=== PATIENT | male | born 1970 | race Caucasian/White ===

== ENCOUNTER 2018-08-30 12:19 | Emergency (ER) | payer MEDICAID ==
[~2018-08-30] VITALS: Ht 193 cm; Wt 116.4 kg
--- NOTE | 2018-08-30 12:39 | NUR ---
RECENT UNPROTECTED SEX
[2018-08-30 13:00] LABS: CLARITY,URINE CLEAR (Clear); COLOR,URINE YELLOW (Yellow); GLUCOSE, URINE NEGATIVE (Neg); KETONES,URINE NEGATIVE (Neg); LEUKOCYTE ESTERASE ,URINE NEGATIVE (Neg); NITRITES, URINE NEGATIVE (Neg); OCCULT BLOOD,URINE NEGATIVE (Neg); PROTEIN,URINE NEGATIVE (Neg); UROBILINOGEN,URINE 0.2 E.U/dL (0.2-1.0)
[2018-08-30 13:10] LABS: BASOPHILS # (AUTO) 0.1 X10'3 (0-0.2); BASOPHILS % (AUTO) 0.6 % (0-1); EOSINOPHILS # (AUTO) 0.3 X10'3 (0-0.9); EOSINOPHILS % (AUTO) 3.5 % (0-6); HEMATOCRIT 43.6 % (42.0-52.0); HEMOGLOBIN 15.2 g/dl (14.0-17.9); LYMPHOCYTES # (AUTO) 1.7 X10'3 (1.1-4.8); LYMPHOCYTES % (AUTO) 18.1 % (21-51); MEAN CORPUSCULAR HEMOGLOBIN 31.7 PG (27.0-31.0); MEAN CORPUSCULAR HGB CONC 34.8 g/dL (33.0-36.5); MEAN CORPUSCULAR VOLUME 90.9 FL (78-98); MEAN PLATELET VOLUME 6.7 FL (7.4-10.4); MONOCYTES # (AUTO) 1.1 X10'3 (0-0.9); MONOCYTES % (AUTO) 11.6 % (2-12); NEUTROPHILS # (AUTO) 6.1 X10'3 (1.8-7.7); NEUTROPHILS % (AUTO) 66.2 % (42-75); PLATELET COUNT 289 X10'3 (140-440); RED BLOOD COUNT 4.79 X10'6 (4.70-6.10); RED CELL DISTRIBUTION WIDTH 14.6 % (11.5-14.5); WHITE BLOOD COUNT 9.2 X10'3 (4.5-11.0)
[2018-08-30 13:11] LABS: UA COLLECTION TYPE CLN CATCH MIDSTREAM
[2018-08-30 13:20] LABS: ALANINE AMINOTRANSFERASE 21 U/L (12-78); ALBUMIN 3.5 G/DL (3.4-5.0); ALBUMIN/GLOBULIN RATIO 0.9 (1.1-1.5); ALKALINE PHOSPHATASE 120 IU/L (46-116); ANION GAP 13 (8-16); ASPARTATE AMINO TRANSFERASE 14 U/L (10-37); BILIRUBIN,TOTAL 0.4 MG/DL (0.1-1.0); BLOOD UREA NITROGEN 8 MG/DL (7-18); BUN/CREATININE RATIO 7.6 (5.4-32.0); CALCIUM 9.1 MG/DL (8.5-10.1); CHLORIDE 102 MMOL/L (99-107); CREATININE 1.05 MG/DL (0.60-1.10); GLUCOSE 98 MG/DL (70-104); POTASSIUM 3.2 MMOL/L (3.5-5.1); SODIUM 140 MMOL/L (135-145); TOTAL CARBON DIOXIDE 25.5 MMOL/L (24-32); TOTAL PROTEIN 7.4 G/DL (6.4-8.2); eGFR 76 ML/MIN
[2018-08-30 13:25] LABS: PROTHROMBIN TIME 10.4 SECONDS (9.0-12.0)
[2018-08-30 13:28] LABS: MAGNESIUM 2.1 MG/DL (1.5-2.4); TROPONIN I < 0.04 NG/ML (0.0-0.05)
--- NOTE | 2018-08-30 14:25 | NUR ---
pt admits to using cocaine and alcohol recently
[2018-08-30 14:49] VITALS: BP 110/56
== END 2018-08-30 14:51 | disposition home or self-care (01) ==
LOC: ER 12:19
DX: R07.89 Other chest pain (principal); Z88.0 Allergy status to penicillin
CPT/HCPCS: 36415; 71045; 80053; 81003; 83605; 83735; 83880; 84145; 84484; 85025; 85610; 93005; 99284

== ENCOUNTER 2018-12-20 19:18 | Emergency (ER) | payer MEDICAID ==
[~2018-12-20] VITALS: Ht 190.5 cm; Wt 105.0 kg
[~2018-12-20 19:18] MED LIST: CLIN150C8 PO
[2018-12-20] MEDS ORDERED: HYDROcodone/acetaminophen 10/325mg tab PO ONE (20:10)
[2018-12-20] MEDS ORDERED: ketorolac trometh inj. 60 MG/2 ML VIAL IM ONE (20:10)
[2018-12-20] MEDS ORDERED: HYDR-4353 PO (20:46)
[2018-12-21] MEDS ORDERED: NO HOME MEDS (16:12)
== END 2018-12-20 20:52 | disposition home or self-care (01) ==
LOC: ER 19:19
DX: S93.401A Sprain of unspecified ligament of right ankle, initial encounter (principal); S93.601A Unspecified sprain of right foot, initial encounter; Z88.0 Allergy status to penicillin; Z88.8 Allergy status to other drugs, medicaments and biological substances; Z79.2 Long term (current) use of antibiotics; Z79.899 Other long term (current) drug therapy; X50.1XXA Overexertion from prolonged static or awkward postures, initial encounter; Y93.02 Activity, running; Y92.89 Other specified places as the place of occurrence of the external cause; Y99.8 Other external cause status
CPT/HCPCS: 73610; 73630; 96372; 99283; J1885

== ENCOUNTER 2018-12-21 14:13 | Inpatient (IN) | payer MEDICAID ==
[~2018-12-21] VITALS: Ht 182.9 cm; Wt 113.2 kg
[~2018-12-21 14:13] MED LIST changes: +HYDR-4353 PO
[2018-12-21] MEDS ORDERED: normal saline 1000ML IV soln IVB ONE ×2 (15:10→16:35)
[2018-12-21] MEDS ORDERED: LORazepam 2 mg/ml vial IV ONE ×2 (15:10→19:40)
[2018-12-21 15:38] LABS: BASOPHILS # (AUTO) 0.1 X10'3 (0-0.2); BASOPHILS % (AUTO) 0.5 % (0-1); EOSINOPHILS % (AUTO) 0 % (0-6); HEMATOCRIT 47.6 % (42.0-52.0); HEMOGLOBIN 16.2 g/dl (14.0-17.9); LYMPHOCYTES # (AUTO) 1.4 X10'3 (1.1-4.8); LYMPHOCYTES % (AUTO) 6.3 % (21-51); MEAN CORPUSCULAR HEMOGLOBIN 31.3 PG (27.0-31.0); MEAN CORPUSCULAR HGB CONC 34.1 g/dL (33.0-36.5); MEAN CORPUSCULAR VOLUME 91.9 FL (78-98); MEAN PLATELET VOLUME 7.9 FL (7.4-10.4); MONOCYTES # (AUTO) 1.6 X10'3 (0-0.9); MONOCYTES % (AUTO) 7.2 % (2-12); NEUTROPHILS # (AUTO) 19.3 X10'3 (1.8-7.7); PLATELET COUNT 307 X10'3 (140-440); RED BLOOD COUNT 5.17 X10'6 (4.70-6.10); RED CELL DISTRIBUTION WIDTH 14.2 % (11.5-14.5); WHITE BLOOD COUNT 22.5 X10'3 (4.5-11.0)
[2018-12-21 15:45] LABS: ALBUMIN 3.7 G/DL (3.4-5.0); ALKALINE PHOSPHATASE 78 IU/L (46-116); ANION GAP 17 (8-16); BILIRUBIN,TOTAL 1.1 MG/DL (0.1-1.0); BLOOD UREA NITROGEN 36 MG/DL (7-18); BUN/CREATININE RATIO 5.5 (5.4-32.0); CALCIUM 8.3 MG/DL (8.5-10.1); CHLORIDE 94 MMOL/L (99-107); CREATININE 6.58 MG/DL (0.60-1.10); GLUCOSE 115 MG/DL (70-104); POTASSIUM 3.5 MMOL/L (3.5-5.1); SODIUM 133 MMOL/L (135-145); TOTAL CARBON DIOXIDE 22.5 MMOL/L (24-32); TOTAL PROTEIN 7.3 G/DL (6.4-8.2); eGFR 9 ML/MIN
[2018-12-21 15:48] LABS: ETHANOL < 0.010 GM/DL (0.0-0.010)
[2018-12-21] MEDS ORDERED: NO HOME MEDS (16:12)
[2018-12-21 16:19] LABS: ACETAMINOPHEN < 2.0 UG/ML (10-30); ASPARTATE AMINO TRANSFERASE 2767 U/L (10-37)
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
[2018-12-21 16:20] LABS: ALANINE AMINOTRANSFERASE 1258 U/L (12-78)
--- NOTE | 2018-12-21 16:34 | NUR ---
STRAIGHT CATH URINE OBTAINED, 2 RN AND 3 SECURITY AT BEDSIDE TO ASSIST, URINE IS DARK BROWN/BLACK, DR LOMBARDI NOTIFIED, ORDERS TO FOLLOW.
[2018-12-21] MEDS ORDERED: haloperidol lactate 5mg/ml inj IM ONE (16:35)
[2018-12-21 16:41] LABS: CREATINE KINASE > 100000 U/L (39-308)
--- NOTE | 2018-12-21 17:04 | NUR ---
MEDICATED PT WITH 3RD LITER BOLUS AND HALDOL PER ORDERS, PT PLACED ON MONITOR WILL UPDATED VS, ALSO PRINTED RHYTHM STRIP AND PLACED ON CHART, DR LOMBARDI NOTIFIED OF PT SWELLING TO RIGHT LEG, PT TO CT WITH ALESSIA RN AND 2 RESIDENTIAL APPLIANCE REPAIR TECHNICIAN PER ORDERS.
[2018-12-21 17:09] LABS: URINE AMPHETAMINE SCREEN POSITIVE (Neg); URINE BARBITUATE SCREEN NEGATIVE (Neg); URINE BENZODIAZEPINES SCREEN NEGATIVE (Neg); URINE CANNABINOID SCREEN POSITIVE (Neg); URINE COCAINE SCREEN POSITIVE (Neg); URINE METHADONE SCREEN NEGATIVE (Neg); URINE OPIATE SCREEN POSITIVE (Neg); URINE PHENCYCLIDINE SCREEN NEGATIVE (Neg)
[2018-12-21 17:13] LABS: CLARITY,URINE TURBID (Clear); COLOR,URINE BROWN (Yellow)
[2018-12-21 17:14] LABS: GLUCOSE, URINE 100 mg/dl (Neg); KETONES,URINE TRACE mg/dl (Neg); LEUKOCYTE ESTERASE ,URINE TRACE (Neg); OCCULT BLOOD,URINE LARGE (Neg)
[2018-12-21 17:15] LABS: UA COLLECTION TYPE STRAIGHT CATH
[2018-12-21 17:17] LABS: NITRITES, URINE UNABLE TO PERFORM (Neg)
[2018-12-21 17:35] LABS: BACTERIA,URINE NONE SEEN /HPF (Neg); MUCUS STRANDS FEW /LPF (Neg); SQUAMOUS EPITHELIAL CELL,UR FEW /LPF (FEW)
[2018-12-21 17:36] LABS: CAL OXALATE CRYSTALS FEW /HPF (NEGATIVE); CELLULAR CAST 0-4 /LPF (NEGATIVE); COARSE GRANULAR CAST 0-3 /LPF (NEGATIVE); HYALINE CASTS 0-3 /LPF (NEGATIVE); RENAL CELLS, URINE FEW /HPF; TRANSITIONAL EPI CELLS,URINE FEW /HPF
[2018-12-21 17:41] LABS: PROTEIN,URINE >=300 mg/dl (Neg)
[2018-12-21 17:42] LABS: WAXY CASTS,URINE 0-3 /LPF (NEGATIVE)
[2018-12-21 18:11] LABS: OXYGEN SATURATION (MIXED VEN) 64.7 % (60-80); PO2 MIXED VENOUS (TEMP COR) 40.4 mmHg (35-46)
[2018-12-21] MEDS: sodium bicarbonate (8.4%) inj. 75 ML in dextrose 5% water 500ml 500 ML IV SCH ×2 (18:19→21:50)
[2018-12-21] MEDS ORDERED: morphine 2 MG/ML inj. syringe IV PRN (18:55)
[2018-12-21] MEDS ORDERED: acetaminophen 325mg tablet PO PRN (18:55)
[2018-12-21] MEDS: sodium bicarbonate (8.4%) inj. 75 MEQ in dextrose 5% water 500ml 500 ML IV SCH ×2 (19:00→23:47)
[2018-12-21 19:49] LABS: PHOSPHORUS 6.7 MG/DL (2.3-4.5)
[2018-12-21] MEDS: docusate sod 100mg capsule PO SCH (20:00)
--- NOTE | 2018-12-21 20:40 | NUR ---
I have received report from Ascencion MAJOR in ED and had the opportunity to ask questions and assume patient care. is set up and ready for PT arrival.
--- NOTE | 2018-12-21 20:55 | NUR ---
PT arrived to unit via ED. PT transferred to bed using slide-board. PT placed in bedside monitor. VSS. PT is on RA, tolerating well O2 sat >96%. PT came up from ED with restraints in place. PT is wearing dark green scrubs. PT RT lower leg is noticeably more reddened swollen, PT does have Bilat palpable dorsalis pedis pulses. Bilat calf measurements taken, LT is 42.0 CM. RT is 46.5 cm. Bed is locked and low. Will continue to monitor.
[2018-12-21 21:00] VITALS: BP 145/76
[2018-12-21] MEDS: sennosides/docusate sodium tablet PO SCH (21:00)
[2018-12-21] MEDS: ceFAZolin 1GM/D5W- ADD-VANTAGE 50 ML IV SCH (21:21)
[2018-12-21 22:00] VITALS: BP 144/72
[2018-12-21] MEDS: heparin, porcine 5000 units/ml vial SQ SCH (22:16)
[2018-12-21] MEDS: morphine 4 MG/ML inj SYRINge IV PRN (22:44)
[2018-12-21 23:00] VITALS: BP 147/69
[2018-12-22] VITALS (24 sets, daily range): BP systolic 113–160; BP diastolic 54–87
--- NOTE | 2018-12-22 | NUR ---
PT sleeping with no s/s of distress noted at this time. VSS. PT has been appropriate and respectful thus far. Bed is locked and low. Call light is within reach. Will continue to monitor.
[2018-12-22] MEDS: HYDROcodone/acetaminophen 10/325mg tab PO PRN ×2 (01:00→05:02)
[2018-12-22] MEDS: sodium bicarbonate (8.4%) inj. 75 MEQ in dextrose 5% water 500ml 500 ML IV SCH ×7 (03:47→21:19)
--- NOTE | 2018-12-22 03:50 | NUR ---
Bladder scanned performed d/t PT not voiding thus far in shift despite IVF running @ 150mL/hr. PT asked multiple times if he needs to void. PT repeatedly stated m Addendum: 12/22/18 at 0453 by Tanja Deshpande RN PT repeatedly stated no. PT states "I've had kidney problems since I was a kind, I don't go much throughout the day". Will continue to monitor. Bladder scan resulted 27ml.
[2018-12-22 04:58] LABS: BASOPHILS % (AUTO) 0.3 % (0-1); EOSINOPHILS # (AUTO) 0.2 X10'3 (0-0.9); EOSINOPHILS % (AUTO) 1.3 % (0-6); HEMATOCRIT 41.2 % (42.0-52.0); HEMOGLOBIN 13.9 g/dl (14.0-17.9); LYMPHOCYTES # (AUTO) 2.1 X10'3 (1.1-4.8); LYMPHOCYTES % (AUTO) 13.2 % (21-51); MEAN CORPUSCULAR HEMOGLOBIN 31.5 PG (27.0-31.0); MEAN CORPUSCULAR HGB CONC 33.8 g/dL (33.0-36.5); MEAN CORPUSCULAR VOLUME 93.2 FL (78-98); MEAN PLATELET VOLUME 8.1 FL (7.4-10.4); MONOCYTES # (AUTO) 0.9 X10'3 (0-0.9); MONOCYTES % (AUTO) 5.8 % (2-12); NEUTROPHILS # (AUTO) 12.3 X10'3 (1.8-7.7); NEUTROPHILS % (AUTO) 79.4 % (42-75); PLATELET COUNT 228 X10'3 (140-440); RED BLOOD COUNT 4.42 X10'6 (4.70-6.10); WHITE BLOOD COUNT 15.5 X10'3 (4.5-11.0)
[2018-12-22 05:21] LABS: ALANINE AMINOTRANSFERASE 825 U/L (12-78); ALBUMIN 2.6 G/DL (3.4-5.0); ALBUMIN/GLOBULIN RATIO 0.9 (1.1-1.5); ALKALINE PHOSPHATASE 61 IU/L (46-116); ANION GAP 15 (8-16); BILIRUBIN,TOTAL 0.7 MG/DL (0.1-1.0); BLOOD UREA NITROGEN 43 MG/DL (7-18); BUN/CREATININE RATIO 5.6 (5.4-32.0); CHLORIDE 97 MMOL/L (99-107); CREATININE 7.67 MG/DL (0.60-1.10); GLUCOSE 89 MG/DL (70-104); MAGNESIUM 1.9 MG/DL (1.5-2.4); PHOSPHORUS 5.7 MG/DL (2.3-4.5); SODIUM 135 MMOL/L (135-145); TOTAL CARBON DIOXIDE 22.7 MMOL/L (24-32); TOTAL PROTEIN 5.6 G/DL (6.4-8.2); eGFR 8 ML/MIN
[2018-12-22 05:30] LABS: ASPARTATE AMINO TRANSFERASE 1382 U/L (10-37); POTASSIUM 2.8 MMOL/L (3.5-5.1)
[2018-12-22] MEDS ORDERED: potassium Cl 20 mEq SR tablet PO ONE (05:40)
--- NOTE | 2018-12-22 05:50 | NUR ---
Recieved critical K of 2.8, SANAZ Farmer notified. Order received got one time does of 20meq PO K. Also received order to increase IVF from 150ml/hr to 200ml/hr. Will continue to monitor.
[2018-12-22 06:12] LABS: CREATINE KINASE 80791 U/L (39-308)
--- NOTE | 2018-12-22 06:25 | NUR ---
Problems reprioritized. Patient report given, questions answered & plan of care reviewed with Ellie MAJOR.
[2018-12-22] MEDS: docusate sod 100mg capsule PO SCH ×2 (08:00→19:55)
[2018-12-22] MEDS: ceFAZolin 1GM/D5W- ADD-VANTAGE 50 ML IV SCH ×2 (08:02→19:55)
[2018-12-22] MEDS: heparin, porcine 5000 units/ml vial SQ SCH ×2 (08:02→19:55)
[2018-12-22 11:58] LABS: PARTIAL THROMBOPLASTIN TIME 31 SECONDS (22-32)
--- NOTE | 2018-12-22 13:49 | NUR ---
Dr. Hill confirmed pt has compartment syndrome with pressure monitor. Decided it was too late for surgery. Dr. Urrutia consulted. Pt fitted for foot drop boot. Tearful about situation and that it was not caught when he came to ER 2 days ago. Pt continues to hallucinate but is very aware of hallucinations. Polite, respectful, following all commands. Spoke with pt's mother on the phone, states she will come in later this afternoon.
--- NOTE | 2018-12-22 18:25 | NUR ---
Problems reprioritized. Patient report given, questions answered & plan of care reviewed with PEDRITO Ashton.
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
--- NOTE | 2018-12-22 18:30 | NUR ---
Patient assessed. Neurologically patient is intact with much anxiety regarding the status of his leg. Care plan reviewed and support given. Patient initially mildly paranoid beliving I was a police radio dispatcher. I stated who I was and patient was calm after that. He moves x4. Able to lift both right and left leg off the bed - no difference in strength between extremities. RLE swollen and tight. Addendum: 12/23/18 at 0135 by Poli Biggs RN (the above note ended unexpectedly while typing - this is addendum) RLE considerably warmer than other extremities but the pallor of the extremity is WNL and equal to the LLE. Pulses confirmed DP/PT with doppler. unable to palpate pulses due to the edema. Strong pulses via doppler PT > DP. Patient complains of pain in the RLE. Difficult for him to describe. He states" it feels like is is and it really hurts". 09/30. pain med given see emar. Patient was concerned about receiving narcotics/pain meds. I gave him the lesser dose per request. Patient is able to push with right foot down with oderate strength
--- NOTE | 2018-12-22 19:00 | NUR ---
no changes in pallor, pain, paresthesia, pulses, paralysis or poikilothermia. Assessing q1h
[2018-12-22] MEDS: lactobacillus rhamnosus 10,000 MMU CELLS/CAPSULE PO SCH (19:55)
--- NOTE | 2018-12-22 20:00 | NUR ---
no changes in pallor, pain, paresthesia, pulses, paralysis or poikilothermia. morphine worked well for pain per patient. Patient is pleasant and cooperative but very anxious about his leg and future. support given
--- NOTE | 2018-12-22 21:00 | NUR ---
no changes in pallor, pain, paresthesia, pulses, paralysis or poikilothermia.
[2018-12-22] MEDS: sennosides/docusate sodium tablet PO SCH (21:19)
--- NOTE | 2018-12-22 22:00 | NUR ---
no changes in pallor, pain, paresthesia, pulses, paralysis or poikilothermia.
--- NOTE | 2018-12-22 23:00 | NUR ---
no changes in pallor, pain, paresthesia, pulses, paralysis or poikilothermia.
[2018-12-22] MEDS: morphine 4 MG/ML inj SYRINge IV PRN (23:10)
[2018-12-23] VITALS (24 sets, daily range): BP systolic 101–157; BP diastolic 56–100
--- NOTE | 2018-12-23 | NUR ---
no changes in pallor, pain, paresthesia, pulses, paralysis or poikilothermia. patient though he might have to urinate. he became frustrated when he could not urinate. bladders scan results showed 30 ml in bladder. zofran given for mild nausea. patient drinks some water (~60 ml) and 2 apple juices (125 ml each) since start of shift at 1800.
[2018-12-23] MEDS: sodium bicarbonate (8.4%) inj. 75 MEQ in dextrose 5% water 500ml 500 ML IV SCH ×4 (00:22→08:24)
[2018-12-23] MEDS: ondansetron/PF 4mg/2ml inj IV PRN (00:22)
--- NOTE | 2018-12-23 01:00 | NUR ---
no changes in pallor, pain, paresthesia, pulses, paralysis or poikilothermia.
--- NOTE | 2018-12-23 02:00 | NUR ---
no changes in pallor, pain, paresthesia, pulses, paralysis or poikilothermia.
--- NOTE | 2018-12-23 03:00 | NUR ---
no changes in pallor, pain, paresthesia, pulses, paralysis or poikilothermia.
--- NOTE | 2018-12-23 04:00 | NUR ---
no changes in pallor, pain, paresthesia, pulses, paralysis or poikilothermia.
--- NOTE | 2018-12-23 05:00 | NUR ---
no changes in pallor, pain, paresthesia, pulses, paralysis or poikilothermia. The pedal pulse sounds stronger via doppler this hour.
--- NOTE | 2018-12-23 05:42 | NUR ---
patient is moving towards positive outcome . RLE DP pulses sound stronger, no other changes with this assessments. the sensation of pressure only remains. Patient is able to lift leg off bed and make general movements and feels pressure when touched. still unable to pull R foot caudally. Addendum: 12/23/18 at 0545 by Poli Biggs RN Amended: Links added.
--- NOTE | 2018-12-23 06:01 | NUR ---
no changes in pallor, pain, paresthesia, pulses, paralysis or poikilothermia.
--- NOTE | 2018-12-23 06:26 | NUR ---
Patient in room ICU 2042. I have received report from PEDRITO Ashton and had the opportunity to ask questions and assume patient care.
[2018-12-23 06:33] LABS: BASOPHILS % (AUTO) 0.4 % (0-1); EOSINOPHILS # (AUTO) 0.2 X10'3 (0-0.9); EOSINOPHILS % (AUTO) 2.1 % (0-6); HEMOGLOBIN 13.9 g/dl (14.0-17.9); LYMPHOCYTES # (AUTO) 1.1 X10'3 (1.1-4.8); MEAN CORPUSCULAR HEMOGLOBIN 31.8 PG (27.0-31.0); MEAN CORPUSCULAR HGB CONC 34.8 g/dL (33.0-36.5); MEAN CORPUSCULAR VOLUME 91.4 FL (78-98); MONOCYTES # (AUTO) 0.6 X10'3 (0-0.9); MONOCYTES % (AUTO) 5.9 % (2-12); NEUTROPHILS # (AUTO) 8.7 X10'3 (1.8-7.7); NEUTROPHILS % (AUTO) 81.6 % (42-75); PLATELET COUNT 236 X10'3 (140-440); RED BLOOD COUNT 4.37 X10'6 (4.70-6.10); RED CELL DISTRIBUTION WIDTH 14.1 % (11.5-14.5); WHITE BLOOD COUNT 10.6 X10'3 (4.5-11.0)
[2018-12-23 06:36] LABS: ALANINE AMINOTRANSFERASE 451 U/L (12-78); ALBUMIN 2.3 G/DL (3.4-5.0); ALBUMIN/GLOBULIN RATIO 0.7 (1.1-1.5); ALKALINE PHOSPHATASE 59 IU/L (46-116); ANION GAP 9 (8-16); ASPARTATE AMINO TRANSFERASE 692 U/L (10-37); BILIRUBIN,TOTAL 0.5 MG/DL (0.1-1.0); BLOOD UREA NITROGEN 47 MG/DL (7-18); BUN/CREATININE RATIO 4.5 (5.4-32.0); CALCIUM 6.8 MG/DL (8.5-10.1); CHLORIDE 94 MMOL/L (99-107); CREATININE 10.54 MG/DL (0.60-1.10); GLUCOSE 95 MG/DL (70-104); MAGNESIUM 1.9 MG/DL (1.5-2.4); PHOSPHORUS 6.3 MG/DL (2.3-4.5); SODIUM 136 MMOL/L (135-145); TOTAL CARBON DIOXIDE 32.8 MMOL/L (24-32); TOTAL PROTEIN 5.5 G/DL (6.4-8.2); eGFR 5 ML/MIN
[2018-12-23] MEDS: HYDROcodone/acetaminophen 10/325mg tab PO PRN ×4 (06:49→23:43)
[2018-12-23 06:57] LABS: CREATINE KINASE 36398 U/L (39-308)
[2018-12-23 06:59] LABS: POTASSIUM 2.9 MMOL/L (3.5-5.1)
--- NOTE | 2018-12-23 07:00 | NUR ---
No changes in pallor, pain, paresthesia, pulses, paralysis or poikilothermia. Pt reports being able to feel pressure but cannot differentiate between temperatures. Sensation of pressure worsens distally. Leg is hot, edematous, and hard. Strong doppler pulses both PT and DP. Reports pain as severe burning, pressure. 10mg norco administered. Pt is able to wiggle toes and point foot downwards but cannot dorsiflex foot at the ankle.
[2018-12-23] MEDS ORDERED: potassium Cl 20 mEq SR tablet PO PRN ×2 (07:05)
[2018-12-23] MEDS: lactobacillus rhamnosus 10,000 MMU CELLS/CAPSULE PO SCH ×2 (07:50→19:49)
[2018-12-23] MEDS: heparin, porcine 5000 units/ml vial SQ SCH ×2 (07:51→19:49)
[2018-12-23] MEDS: ceFAZolin 1GM/D5W- ADD-VANTAGE 50 ML IV SCH (07:51)
[2018-12-23] MEDS: docusate sod 100mg capsule PO SCH ×2 (07:51→19:49)
--- NOTE | 2018-12-23 08:02 | NUR ---
no changes in pallor, pain, paresthesia, pulses, paralysis or poikilothermia.
--- NOTE | 2018-12-23 09:00 | NUR ---
no changes in pallor, pain, paresthesia, pulses, paralysis or poikilothermia.
--- NOTE | 2018-12-23 10:00 | NUR ---
no changes in pallor, pain, paresthesia, pulses, paralysis or poikilothermia.
--- NOTE | 2018-12-23 11:00 | NUR ---
no changes in pallor, pain, paresthesia, pulses, paralysis or poikilothermia. Billy cath placed in the R IJ by Dr. Hill. Pt tolerated well. Dialysis to begin shortly.
[2018-12-23] MEDS ORDERED: normal saline 1000ml 250 ML IV PRN (11:21)
[2018-12-23] MEDS ORDERED: heparin 1,000 units/ml 10ml inj HE ONE (11:25)
--- NOTE | 2018-12-23 12:00 | NUR ---
pt feels decreased sensation distally (foot, ankle area), but increased sensation further up the leg. no change in temperature. continues to have strong pulses
--- NOTE | 2018-12-23 13:00 | NUR ---
no changes in pallor, pain, paresthesia, pulses, paralysis or poikilothermia.
--- NOTE | 2018-12-23 14:00 | NUR ---
no changes in pallor, pain, paresthesia, pulses, paralysis or poikilothermia.
--- NOTE | 2018-12-23 15:00 | NUR ---
no changes in pallor, pain, paresthesia, pulses, paralysis or poikilothermia.
--- NOTE | 2018-12-23 16:00 | NUR ---
no changes in pallor, pain, paresthesia, pulses, paralysis or poikilothermia.
--- NOTE | 2018-12-23 17:00 | NUR ---
no changes in pallor, pain, paresthesia, pulses, paralysis or poikilothermia.
--- NOTE | 2018-12-23 17:59 | NUR ---
Pt has tried to stand and urinate x3 without success. Bladder scanned pt this am with 265cc urine in bladder, this evening there was 316cc. Okay to straight cath with 400cc or greater. Pt understands.
--- NOTE | 2018-12-23 18:00 | NUR ---
no changes in pallor, pain, paresthesia, pulses, paralysis or poikilothermia.
--- NOTE | 2018-12-23 18:25 | NUR ---
Problems reprioritized. Patient report given, questions answered & plan of care reviewed with PEDRITO Ashton.
--- NOTE | 2018-12-23 18:30 | NUR ---
PATIENT ASSESSED- PATIENT STILL ANXIOUS ABOUT THE STATUS OFF RLE AND MANY OTHER THINGS. SUPPORT GIVEN. PATIENT IS NEUROLOGICALLY INTACT EXCEPT FOR RLE WHICH SENSATION IS DECREASED COMPARED TO LLE. THIS DECREASED SENSATION IS UNCHANGED FROM THAT GIVEN IN REPORT AND ALSO - PER PATIENT - IS UNCHANGED FROM THE LAST SHIFT. PATIENT CAN FEEL SHARP/FIRM STIMULUS ON RLE FROM KNEE DOWN - PATIENT DOES NOT DETECT LIGHT TOUCH TO THIS AREA. PER PATIENT THIGH FEELS TIGHTER THAN BEFORE BUT SENSATION SEEMS TO BE MORE WNL. PATIENT DESCRIBES HIS PAIN HARD TO DESCRIBE. HE STATES IT "FEELS LIKE STEEL BUT ALSO IT HURTS - JONES". PATIENT DOES NOT WANT PAIN MED AT THIS TIME AND SAYS HE WILL TAKE IT WITH 8 PM MEDS. I EXPLAINED THE BENEFITS OF KEEPING ON A PAIN MED SCHEDULE SO THERE ARE NO PEAKS AND VALLEYS OF PAIN/NO PAIN. PATIENT UNDERSTANDS AND SAYS HE WILL BE MORE OPEN TO TAKING PAIN MED. NO RESPIRATORY DISTRESS, LUNGS ARE CLEAR, ROOMS AIR, SR WITH NO ECTOPY NOTED, BLOOD PRESSURE WNL. DOPPLER PULSES TO RLE PDP & PT. PULSE LOCATIONS MARKED WITH "X". RLE IS MODERATELY WARM, MILDLY REDDENED, CALF FEELS VERY TIGHT ESPECIALLY. FOOT DROP BOOT ON - REMOVED Q1H WITH PULSE CHECKS. PATIENT CAN LIFT BOTH LEGS OFF THE BED EQUALLY WITHOUT DEFICIT. PATIENT STATES HE REALLY WANTS TO URINATE. HE ATTEMPTS AND APPROXIMATELY 30 CC DARK BRYAN URINE. BLADDER SCAN DONE... 322 CC PER BLADDER SCANNER. I SPOKE TO DANIELLE SALCIDO NP REGARDING BLADDER SCAN/STRAIGHT CATH /AMOUNT URINE - PER SANAZ SANTOS, LET PATIENT URINATE ON HIS OWN - NO NEED FOR STRAIGHT CATH. I EXPLAINED THIS TO PATIENT HE BECAUSE VERY FOCUSED ON THE ABILITY TO URINATE. I LET HIM KNOW IF HE FEELS THE NEED TO URINATE - USE THE URINAL. IF THERE IS NO NEED TO URINATE, HE NEED NOT FOCUS ON THIS A PROBLEM. I MENTIONED HD TOMORROW AND MORE FLUID WILL BE REMOVED. PATIENT UNDERSTOOD AND CALMED. NO SKIN ISSUES OTHER THAN THE SUPERFICIAL SCRATCHES/RASHY AREA ON ARMS/UNDER ARMS. HD CATHETER TO RIGHT IJ CDI. NO OTHER IV ACCESS PER ORDER.
--- NOTE | 2018-12-23 19:00 | NUR ---
no changes in pallor, pain, paresthesia, pulses, paralysis or poikilothermia.
--- NOTE | 2018-12-23 20:00 | NUR ---
no changes in pallor, pain, paresthesia, pulses, paralysis or poikilothermia. - PATIENT TAKES NORCO FOR PAIN IN RLE - 510 BURNING/"STEEL", ACHING
--- NOTE | 2018-12-23 21:00 | NUR ---
no changes in pallor, pain, paresthesia, pulses, paralysis or poikilothermia. PER PATIENT NORCO IS HELPFUL - HE "CAN SLEEP A BIT HERE AND THERE"
[2018-12-23] MEDS: sennosides/docusate sodium tablet PO SCH (21:19)
--- NOTE | 2018-12-23 22:00 | NUR ---
no changes in pallor, pain, paresthesia, pulses, paralysis or poikilothermia.
--- NOTE | 2018-12-23 22:00 | NUR ---
no changes in pallor, pain, paresthesia, pulses, paralysis or poikilothermia.
--- NOTE | 2018-12-23 23:00 | NUR ---
no changes in pallor, pain, paresthesia, pulses, paralysis or poikilothermia.
[2018-12-24] VITALS (24 sets, daily range): BP systolic 119–152; BP diastolic 44–109
--- NOTE | 2018-12-24 | NUR ---
no changes in pallor, pain, paresthesia, pulses, paralysis or poikilothermia. PAIN MED GIVEN FOR PAIN 5/10, RLE - ACHING, BURNING
--- NOTE | 2018-12-24 01:00 | NUR ---
no changes in pallor, pain, paresthesia, pulses, paralysis or poikilothermia. PER PATIENT NORCO WORKED WELL, PATIENT IS ABLE TO SLEEP ON AND OFF
--- NOTE | 2018-12-24 02:00 | NUR ---
no changes in pallor, pain, paresthesia, pulses, paralysis or poikilothermia. PATIENT URINATES 100 ML DARK BRYAN URINE
--- NOTE | 2018-12-24 03:00 | NUR ---
no changes in pallor, pain, paresthesia, pulses, paralysis or poikilothermia. PATIENT URINATES 100 ML MORE DARK BRYAN URINE - MAKES 250 ML TOTAL THIS SHIFT. I CAN ALSO PALPATE THE RIGHT DORSAL PEDAL PULSE AFTER PRESSING THROUGH EDEMA. DOPPLER TO POST TIB.
[2018-12-24] MEDS: HYDROcodone/acetaminophen 10/325mg tab PO PRN ×5 (03:52→22:16)
--- NOTE | 2018-12-24 04:00 | NUR ---
no changes in pallor, pain, paresthesia, pulses (RIGHT DORSAL PEDAL PULSE IS PALPABLE THROUGH EDEMA, DOPPLER TO POST TIB)), paralysis or poikilothermia.
--- NOTE | 2018-12-24 06:15 | NUR ---
Patient in room ICU 2042. I have received report from cnc machinist 2nd shift and had the opportunity to ask questions and assume patient care.
[2018-12-24 07:00] LABS: BASOPHILS # (AUTO) 0.1 X10'3 (0-0.2); BASOPHILS % (AUTO) 0.7 % (0-1); EOSINOPHILS # (AUTO) 0.4 X10'3 (0-0.9); EOSINOPHILS % (AUTO) 4.4 % (0-6); HEMATOCRIT 40.2 % (42.0-52.0); HEMOGLOBIN 13.7 g/dl (14.0-17.9); LYMPHOCYTES # (AUTO) 1.2 X10'3 (1.1-4.8); LYMPHOCYTES % (AUTO) 12.4 % (21-51); MEAN CORPUSCULAR HEMOGLOBIN 31.4 PG (27.0-31.0); MEAN CORPUSCULAR VOLUME 92.2 FL (78-98); MEAN PLATELET VOLUME 7.7 FL (7.4-10.4); MONOCYTES # (AUTO) 0.8 X10'3 (0-0.9); MONOCYTES % (AUTO) 8.3 % (2-12); NEUTROPHILS # (AUTO) 7.1 X10'3 (1.8-7.7); NEUTROPHILS % (AUTO) 74.2 % (42-75); PLATELET COUNT 230 X10'3 (140-440); RED BLOOD COUNT 4.36 X10'6 (4.70-6.10); RED CELL DISTRIBUTION WIDTH 14.4 % (11.5-14.5); WHITE BLOOD COUNT 9.5 X10'3 (4.5-11.0)
--- NOTE | 2018-12-24 07:00 | NUR ---
pallor:Chin red and warm, top of foot pale, outer aspect of foot bruised , bottom of foot and toes WNL parestheia: can feel light touch to toes bottom of foot ankle and chin, cannot feel light touch to top of foot. pulses: see documentation in intervention section paralysis:able to flex toes and foot slightly cannot extend at all. Can lift foot off the bed without difficulty poikilothermia:foot warm to touch increased warmth to reddened area on chin
[2018-12-24 07:33] LABS: ALANINE AMINOTRANSFERASE 220 U/L (12-78); ALBUMIN 2.3 G/DL (3.4-5.0); ALBUMIN/GLOBULIN RATIO 0.7 (1.1-1.5); ALKALINE PHOSPHATASE 65 IU/L (46-116); ANION GAP 10 (8-16); ASPARTATE AMINO TRANSFERASE 569 U/L (10-37); BILIRUBIN,TOTAL 0.5 MG/DL (0.1-1.0); BLOOD UREA NITROGEN 35 MG/DL (7-18); BUN/CREATININE RATIO 3.5 (5.4-32.0); CALCIUM 7.7 MG/DL (8.5-10.1); CHLORIDE 97 MMOL/L (99-107); CREATININE 9.91 MG/DL (0.60-1.10); GLUCOSE 86 MG/DL (70-104); MAGNESIUM 1.9 MG/DL (1.5-2.4); PHOSPHORUS 5.2 MG/DL (2.3-4.5); POTASSIUM 3.4 MMOL/L (3.5-5.1); SODIUM 135 MMOL/L (135-145); TOTAL CARBON DIOXIDE 27.6 MMOL/L (24-32); TOTAL PROTEIN 5.7 G/DL (6.4-8.2); eGFR 6 ML/MIN
[2018-12-24 07:51] LABS: CREATINE KINASE 20576 U/L (39-308)
[2018-12-24] MEDS: lactobacillus rhamnosus 10,000 MMU CELLS/CAPSULE PO SCH ×2 (07:51→20:52)
[2018-12-24] MEDS: docusate sod 100mg capsule PO SCH ×2 (07:51→20:52)
[2018-12-24] MEDS: heparin, porcine 5000 units/ml vial SQ SCH ×2 (07:51→20:52)
[2018-12-24] MEDS ORDERED: normal saline 1000ml 250 ML IV PRN (09:49)
[2018-12-24] MEDS ORDERED: heparin 1,000unit/ml 10ml vial 10 ML IV ONE (09:49)
[2018-12-24] MEDS ORDERED: heparin 1,000 units/ml 10ml inj HE ONE (09:55)
[2018-12-24] MEDS ORDERED: VANCOmycin 1250MG/NS 250ml Bag 250 ML IV ONE (09:55)
[2018-12-24] MEDS ORDERED: cefTAZidime inj 2 GM in normal saline 100ml IV soln 100 ML IV SCH (09:55)
[2018-12-24] MEDS: morphine 2 MG/ML inj. syringe IV PRN ×2 (10:30→14:32)
--- NOTE | 2018-12-24 12:00 | NUR ---
pallor:Baker red and warm, top of foot pale, outer aspect of foot bruised , bottom of foot and toes WNL parestheia: can feel light touch to toes bottom of foot ankle and baker, cannot feel light touch to top of foot. pulses: see documentation in intervention section paralysis:able to flex toes and foot slightly cannot extend at all. Can lift foot off the bed without difficulty poikilothermia:foot warm to touch increased warmth to reddened area on baker
[2018-12-24] MEDS: normal saline 1000ml 1,000 ML IV SCH (12:38)
[2018-12-24] MEDS: ondansetron/PF 4mg/2ml inj IV PRN (13:51)
--- NOTE | 2018-12-24 18:02 | NUR ---
Problems reprioritized. Patient report given, questions answered & plan of care reviewed with oncoming shift.
--- NOTE | 2018-12-24 18:30 | NUR ---
Patient in room ICU 2042. I have received report from PEDRITO Kruse and had the opportunity to ask questions and assume patient care.
--- NOTE | 2018-12-24 19:00 | NUR ---
Intial assessment pallor:Baker is red (redness outlined with marker) and warm to the touch, top of the foot is pale, minimal bruising to the lateral side of the foot, All other areas are within normal limits parestheia: Pt can feel touch to his baker, unable to feel top of his foot, lightly feels touch to his toes, can feel touch to the calf and can feel ankle and bottom of foot. pulses: Right DP and PT found via doppler, Left DP and PT are palpable paralysis:pt able to slightly flex foot, cannot extend foot at all. Can lift foot off the bed and move around without difficulty. poikilothermia:foot warm to touch with increased warmth to reddened area on baker.
--- NOTE | 2018-12-24 20:00 | NUR ---
pallor: no changes from initial assessment parestheia: no changes from initial assessment pulses: Right DP palpable but very weak and PT found via doppler, Left DP and PT are palpable paralysis: no changes from initial assessment poikilothermia:no changes from initial assessment
[2018-12-24] MEDS: sennosides/docusate sodium tablet PO SCH (20:53)
--- NOTE | 2018-12-24 21:00 | NUR ---
pallor: no changes from initial assessment parestheia: no changes from initial assessment pulses: Right DP and PT found via doppler, Left DP and PT are palpable paralysis: no changes from initial assessment poikilothermia:no changes from initial assessment
--- NOTE | 2018-12-24 22:00 | NUR ---
pallor: no changes from initial assessment parestheia: no changes from initial assessment pulses: no changes from last assessment paralysis: no changes from initial assessment poikilothermia:no changes from initial assessment
[2018-12-25] VITALS (7 sets, daily range): BP systolic 97–164; BP diastolic 66–107
[2018-12-25] MEDS: HYDROcodone/acetaminophen 10/325mg tab PO PRN ×2 (02:38→22:34)
[2018-12-25 03:46] LABS: BASOPHILS % (AUTO) 0.5 % (0-1); EOSINOPHILS # (AUTO) 0.4 X10'3 (0-0.9); EOSINOPHILS % (AUTO) 5.2 % (0-6); HEMATOCRIT 41.8 % (42.0-52.0); HEMOGLOBIN 14.1 g/dl (14.0-17.9); LYMPHOCYTES # (AUTO) 1.2 X10'3 (1.1-4.8); LYMPHOCYTES % (AUTO) 14.8 % (21-51); MEAN CORPUSCULAR HEMOGLOBIN 31.6 PG (27.0-31.0); MEAN CORPUSCULAR HGB CONC 33.8 g/dL (33.0-36.5); MEAN CORPUSCULAR VOLUME 93.7 FL (78-98); MEAN PLATELET VOLUME 7.5 FL (7.4-10.4); MONOCYTES # (AUTO) 0.8 X10'3 (0-0.9); MONOCYTES % (AUTO) 10.2 % (2-12); NEUTROPHILS # (AUTO) 5.8 X10'3 (1.8-7.7); NEUTROPHILS % (AUTO) 69.3 % (42-75); PLATELET COUNT 249 X10'3 (140-440); RED BLOOD COUNT 4.46 X10'6 (4.70-6.10); RED CELL DISTRIBUTION WIDTH 14.1 % (11.5-14.5); WHITE BLOOD COUNT 8.3 X10'3 (4.5-11.0)
[2018-12-25 04:23] LABS: ALANINE AMINOTRANSFERASE 131 U/L (12-78); ALBUMIN 2.4 G/DL (3.4-5.0); ALBUMIN/GLOBULIN RATIO 0.6 (1.1-1.5); ALKALINE PHOSPHATASE 71 IU/L (46-116); ANION GAP 10 (8-16); ASPARTATE AMINO TRANSFERASE 500 U/L (10-37); BILIRUBIN,TOTAL 0.5 MG/DL (0.1-1.0); BLOOD UREA NITROGEN 28 MG/DL (7-18); BUN/CREATININE RATIO 3.2 (5.4-32.0); CALCIUM 8.4 MG/DL (8.5-10.1); CHLORIDE 97 MMOL/L (99-107); CREATININE 8.65 MG/DL (0.60-1.10); GLUCOSE 91 MG/DL (70-104); MAGNESIUM 1.9 MG/DL (1.5-2.4); PHOSPHORUS 4.7 MG/DL (2.3-4.5); POTASSIUM 3.6 MMOL/L (3.5-5.1); SODIUM 135 MMOL/L (135-145); TOTAL CARBON DIOXIDE 28.1 MMOL/L (24-32); TOTAL PROTEIN 6.1 G/DL (6.4-8.2); eGFR 7 ML/MIN
--- NOTE | 2018-12-25 05:00 | NUR ---
Unable to check patient's pulses at this time due to increased agitation, patient not allowing care at this time and is wanting to leave AMA
[2018-12-25 05:14] LABS: CREATINE KINASE 14002 U/L (39-308)
--- NOTE | 2018-12-25 06:00 | NUR ---
Intial assessment pallor:Floyd is red (redness outlined with marker) and warm to the touch, minimal bruising to the lateral side of the foot, All other areas are within normal limits parestheia: numbness/dulled sensation to top of his foot all other sensation intact pulses: Right DP to palpation weak pulse, Left DP are palpable normal paralysis:pt able to slightly flex foot, cannot extend foot at all. Can lift foot off the bed and move around without difficulty
--- NOTE | 2018-12-25 06:00 | NUR ---
Around 0500, entered patient's room and he was complaining of a headache, I told him that I would check his eMAR to see if he had anything ordered and would be back shortly. I came back into the room with intentions of giving him tylenol. At this time PEDRITO Ashton was in the room talking to the patient. Poli informed me that the patient wanted to leave AMA. I proceeded to ask the patient a couple of questions to figure out why the sudden desire to leave the hospital. He responded with "I don't feel comfortable being here, I just want to leave, Its nothing against you, I just want to leave." I was unable to get any information out of the patient and the patient was becoming increasingly agitated as I asked questions. At this point, patient's mentation is in question as he appears to be paranoid about his current situation, a major change in behavior than what has been seen all shift. I then spoke to my charge nurse PEDRITO Garces and explained the situation to her. She went and tried to the talk to the patient and explain that it is important that he stays until he is medically clear, patient still insisted on leaving. At this time Jakub Sales NP was called and notified of the situation. CORRECTION WORKER ordered to keep the ro catheter in and keep patient from leaving AMA as he is not medically cleared to go. Security was called as standby as patient was getting more agitated as we attempted to calm him down and convince him to stay until he is cleared. We explained to the unarmed security officer that we cannot allow the patient to leave and have orders to keep him here. light truck driver questioned our orders as he believes that there is nothing wrong with the patient's mentation. So Dr Hill was then called to be notified of the situation, he did not answer, a voicemail was left, we are now awaiting for a call back. I have been unable to assess the patient's leg since 0400 because of this.
--- NOTE | 2018-12-25 06:30 | NUR ---
Problems reprioritized. Patient report given, questions answered & plan of care reviewed with PEDRITO Centeno.
--- NOTE | 2018-12-25 06:59 | NUR ---
patient refusing to wear continuous monitoring equipment and is demonstrating a desire to leave AMA because he does not feel comfortable here. Patient alert oriented x4 pleasant. Discussed he is not medically cleared to leave and there is risk of leaving leading to worsening symptoms and possibly . Patient understands discussion and is awaiting to speak with dr. rodriguez.
[2018-12-25] MEDS: docusate sod 100mg capsule PO SCH ×2 (07:35→21:07)
[2018-12-25] MEDS: lactobacillus rhamnosus 10,000 MMU CELLS/CAPSULE PO SCH ×2 (07:35→21:08)
[2018-12-25] MEDS: heparin, porcine 5000 units/ml vial SQ SCH ×2 (07:35→20:00)
[2018-12-25] MEDS: acetaminophen 325mg tablet PO PRN (07:43)
--- NOTE | 2018-12-25 08:00 | NUR ---
patient refused 0800 vitals
[2018-12-25] MEDS: ondansetron/PF 4mg/2ml inj IV PRN ×2 (08:14→22:31)
--- NOTE | 2018-12-25 09:00 | NUR ---
patient refused vitals
[2018-12-25] MEDS ORDERED: heparin 1,000unit/ml 10ml vial 10 ML IV ONE (09:32)
[2018-12-25] MEDS ORDERED: normal saline 1000ml 250 ML IV PRN (09:32)
[2018-12-25] MEDS ORDERED: LORazepam 1 MG tablet PO PRN (09:35)
[2018-12-25] MEDS ORDERED: heparin 1,000 units/ml 10ml inj IV ONE (09:35)
[2018-12-25] MEDS ORDERED: heparin 1,000 units/ml 10ml inj HE ONE (09:40)
[2018-12-25] MEDS: LORazepam 1 MG tablet PO PRN ×2 (10:00→21:08)
--- NOTE | 2018-12-25 10:00 | NUR ---
patient refused vitals
--- NOTE | 2018-12-25 11:16 | NUR ---
report given to alla MAJOR MEDR
--- NOTE | 2018-12-25 11:51 | NUR ---
Patient in room ICU 2042. I have received report from WENDI MAJOR and had the opportunity to ask questions and assume patient care.
--- NOTE | 2018-12-25 13:17 | NUR ---
AGREE WITH PHYSICAL ASSESSMENT DONE BY BILINGUAL CALL CENTER REPRESENTATIVE Addendum: 12/25/18 at 1318 by Karen Smith RN Amended: Links added.
--- NOTE | 2018-12-25 17:56 | NUR ---
Problems reprioritized. Patient report given, questions answered & plan of care reviewed with CHULA MAJOR.
--- NOTE | 2018-12-25 18:24 | NUR ---
Patient in room [facility]. I have received report from Nancy MAJOR and had the opportunity to ask questions and assume patient care.
[2018-12-25] MEDS: sennosides/docusate sodium tablet PO SCH (21:08)
[2018-12-25] MEDS: morphine 2 MG/ML inj. syringe IV PRN (21:09)
[2018-12-26] VITALS: BP 106/74
[2018-12-26] MEDS: morphine 2 MG/ML inj. syringe IV PRN ×2 (04:13→22:12)
[2018-12-26 06:13] LABS: BASOPHILS # (AUTO) 0.1 X10'3 (0-0.2); BASOPHILS % (AUTO) 0.6 % (0-1); EOSINOPHILS # (AUTO) 0.6 X10'3 (0-0.9); EOSINOPHILS % (AUTO) 6.8 % (0-6); HEMATOCRIT 41.1 % (42.0-52.0); HEMOGLOBIN 13.7 g/dl (14.0-17.9); LYMPHOCYTES # (AUTO) 1.3 X10'3 (1.1-4.8); LYMPHOCYTES % (AUTO) 15.3 % (21-51); MEAN CORPUSCULAR HEMOGLOBIN 31.3 PG (27.0-31.0); MEAN CORPUSCULAR HGB CONC 33.4 g/dL (33.0-36.5); MEAN CORPUSCULAR VOLUME 93.8 FL (78-98); MEAN PLATELET VOLUME 7.6 FL (7.4-10.4); MONOCYTES % (AUTO) 11.9 % (2-12); NEUTROPHILS # (AUTO) 5.7 X10'3 (1.8-7.7); NEUTROPHILS % (AUTO) 65.4 % (42-75); PLATELET COUNT 260 X10'3 (140-440); RED BLOOD COUNT 4.38 X10'6 (4.70-6.10); RED CELL DISTRIBUTION WIDTH 14.2 % (11.5-14.5); WHITE BLOOD COUNT 8.7 X10'3 (4.5-11.0)
--- NOTE | 2018-12-26 06:34 | NUR ---
Problems reprioritized. Patient report given, questions answered & plan of care reviewed with Nancy MAJOR.
--- NOTE | 2018-12-26 06:34 | NUR ---
Patient in room [facility] 357. I have received report from valerio ontiveros and had the opportunity to ask questions and assume patient care.
[2018-12-26 06:43] LABS: ALANINE AMINOTRANSFERASE 79 U/L (12-78); ALBUMIN 2.3 G/DL (3.4-5.0); ALBUMIN/GLOBULIN RATIO 0.6 (1.1-1.5); ANION GAP 13 (8-16); ASPARTATE AMINO TRANSFERASE 400 U/L (10-37); BILIRUBIN,TOTAL 0.5 MG/DL (0.1-1.0); BLOOD UREA NITROGEN 42 MG/DL (7-18); BUN/CREATININE RATIO 3.7 (5.4-32.0); CALCIUM 8.5 MG/DL (8.5-10.1); CHLORIDE 97 MMOL/L (99-107); CREATININE 11.48 MG/DL (0.60-1.10); GLUCOSE 100 MG/DL (70-104); POTASSIUM 3.6 MMOL/L (3.5-5.1); SODIUM 137 MMOL/L (135-145); TOTAL CARBON DIOXIDE 26.7 MMOL/L (24-32); TOTAL PROTEIN 5.9 G/DL (6.4-8.2); VANCOMYCIN,RANDOM 13.6 UG/ML; eGFR 5 ML/MIN
[2018-12-26 07:00] VITALS: BP 135/88
[2018-12-26 07:08] LABS: ALKALINE PHOSPHATASE 67 IU/L (46-116)
[2018-12-26 07:31] LABS: CREATINE KINASE 7346 U/L (39-308)
[2018-12-26] MEDS: docusate sod 100mg capsule PO SCH ×2 (07:59→20:46)
[2018-12-26] MEDS ORDERED: vancomycin/NS 1 GM ADD-VANTAGE 250 ML IV PRN (08:00)
[2018-12-26] MEDS: HYDROcodone/acetaminophen 10/325mg tab PO PRN ×3 (08:00→20:46)
[2018-12-26] MEDS ORDERED: vancomycin inj 500 MG in normal saline 100ml IV soln 100 ML IV ONE (08:00)
[2018-12-26] MEDS: lactobacillus rhamnosus 10,000 MMU CELLS/CAPSULE PO SCH ×2 (08:00→20:46)
[2018-12-26] MEDS: heparin, porcine 5000 units/ml vial SQ SCH ×2 (08:00→20:47)
[2018-12-26] MEDS ORDERED: vancomycin inj 500 MG in normal saline 100ml IV soln 100 ML IV PRN (08:00)
[2018-12-26] MEDS: methylnaltrexone br 12mg/0.6ml inj***SubQ only SQ SCH (08:01)
[2018-12-26 12:08] VITALS: BP 145/95
[2018-12-26] MEDS ORDERED: diphenhydrAMINE 25mg capsule PO ONE (14:10)
[2018-12-26] MEDS: normal saline 1000ml 1,000 ML IV SCH (15:09)
--- NOTE | 2018-12-26 15:40 | NUR ---
Initial: Pt admit w/ hallucinations and psychotic positive for meth, opiates, cannabinoids, cocaine, and reports ecstasy as well. DX DONNA, rhabdomyolysis and receiving HD now. 75% avg 2L fluid restricted/renal/mechanical soft diet meeting needs. Creatine Kinase down to 7346 from greater than [id number] on admit. LBM 12/21 receiving senna, colace, and relistor. Will continue to monitor. Rec: 1. continue renal/mechanical soft/2L fluid-restricted diet per MD 2. monitor for ONS needs 3. routine bowel care for constipation 4. wt w/ HD Addendum: 12/26/18 at [address] Amended: Links added.
[2018-12-26] MEDS: cefTAZidime inj. 1 GM in normal saline 100ml IV soln 100 ML IV SCH (17:20)
--- NOTE | 2018-12-26 18:24 | NUR ---
Problems reprioritized. Patient report given, questions answered & plan of care reviewed with CHULA MAJOR.
[2018-12-26 20:00] VITALS: BP 134/86
[2018-12-26] MEDS: sennosides/docusate sodium tablet PO SCH (20:46)
[2018-12-27 00:42] VITALS: BP 135/91
[2018-12-27] MEDS: HYDROcodone/acetaminophen 10/325mg tab PO PRN (02:06)
[2018-12-27] MEDS: morphine 2 MG/ML inj. syringe IV PRN ×2 (03:49→08:07)
[2018-12-27 06:07] LABS: BASOPHILS # (AUTO) 0.1 X10'3 (0-0.2); BASOPHILS % (AUTO) 0.9 % (0-1); EOSINOPHILS # (AUTO) 0.6 X10'3 (0-0.9); EOSINOPHILS % (AUTO) 6.9 % (0-6); HEMATOCRIT 40.2 % (42.0-52.0); HEMOGLOBIN 13.7 g/dl (14.0-17.9); LYMPHOCYTES # (AUTO) 1.5 X10'3 (1.1-4.8); MEAN CORPUSCULAR HEMOGLOBIN 31.5 PG (27.0-31.0); MEAN CORPUSCULAR VOLUME 92.5 FL (78-98); MEAN PLATELET VOLUME 7.5 FL (7.4-10.4); MONOCYTES # (AUTO) 1.1 X10'3 (0-0.9); MONOCYTES % (AUTO) 13.2 % (2-12); NEUTROPHILS # (AUTO) 5.3 X10'3 (1.8-7.7); PLATELET COUNT 274 X10'3 (140-440); RED BLOOD COUNT 4.34 X10'6 (4.70-6.10); RED CELL DISTRIBUTION WIDTH 14.2 % (11.5-14.5); WHITE BLOOD COUNT 8.6 X10'3 (4.5-11.0)
--- NOTE | 2018-12-27 06:30 | NUR ---
Patient in room [facility] 357. I have received report from PEDRITO Meredith and had the opportunity to ask questions and assume patient care.
[2018-12-27 06:31] LABS: ALANINE AMINOTRANSFERASE 65 U/L (12-78); ALBUMIN 2.5 G/DL (3.4-5.0); ALBUMIN/GLOBULIN RATIO 0.7 (1.1-1.5); ALKALINE PHOSPHATASE 67 IU/L (46-116); ANION GAP 11 (8-16); ASPARTATE AMINO TRANSFERASE 256 U/L (10-37); BILIRUBIN,TOTAL 0.5 MG/DL (0.1-1.0); BLOOD UREA NITROGEN 30 MG/DL (7-18); BUN/CREATININE RATIO 3.1 (5.4-32.0); CALCIUM 8.7 MG/DL (8.5-10.1); CHLORIDE 100 MMOL/L (99-107); CREATININE 9.62 MG/DL (0.60-1.10); GLUCOSE 97 MG/DL (70-104); PHOSPHORUS 4.6 MG/DL (2.3-4.5); POTASSIUM 3.9 MMOL/L (3.5-5.1); SODIUM 137 MMOL/L (135-145); TOTAL CARBON DIOXIDE 26.5 MMOL/L (24-32); TOTAL PROTEIN 6.2 G/DL (6.4-8.2); eGFR 6 ML/MIN
[2018-12-27 06:34] LABS: CREATINE KINASE 3169 U/L (39-308)
--- NOTE | 2018-12-27 06:35 | NUR ---
Problems reprioritized. Patient report given, questions answered & plan of care reviewed with PEDRITO Meredith. Addendum: 12/27/18 at 1851 by Mariela Zabala RN Report given at [id number]
--- NOTE | 2018-12-27 06:37 | NUR ---
Problems reprioritized. Patient report given, questions answered & plan of care reviewed with Mariela MAJOR.
[2018-12-27 07:46] VITALS: BP 128/70
[2018-12-27] MEDS ORDERED: normal saline 1000ml 250 ML IV PRN (07:56)
[2018-12-27] MEDS ORDERED: heparin 1,000 units/ml 10ml inj HE ONE (08:00)
[2018-12-27] MEDS: lactobacillus rhamnosus 10,000 MMU CELLS/CAPSULE PO SCH ×2 (08:06→20:07)
[2018-12-27] MEDS: docusate sod 100mg capsule PO SCH ×2 (08:06→20:07)
[2018-12-27] MEDS: heparin, porcine 5000 units/ml vial SQ SCH ×2 (08:07→20:07)
[2018-12-27 13:00] VITALS: BP 141/67
[2018-12-27 19:00] VITALS: BP 158/93
--- NOTE | 2018-12-27 19:09 | NUR ---
Patient in room [facility] 357. I have received report from Mariela MAJOR and had the opportunity to ask questions and assume patient care.
[2018-12-27] MEDS: sennosides/docusate sodium tablet PO SCH (20:07)
[2018-12-27 20:22] VITALS: BP 158/93
[2018-12-28 00:22] VITALS: BP 173/84
[2018-12-28] MEDS: VANCOMYCIN LEVEL IV SCH (03:28)
[2018-12-28 05:17] LABS: HBSAG SCREEN Negative (Negative)
[2018-12-28 05:18] LABS: BASOPHILS # (AUTO) 0.1 X10'3 (0-0.2); BASOPHILS % (AUTO) 0.9 % (0-1); EOSINOPHILS # (AUTO) 0.5 X10'3 (0-0.9); EOSINOPHILS % (AUTO) 5.5 % (0-6); HEMATOCRIT 38.4 % (42.0-52.0); HEMOGLOBIN 13.1 g/dl (14.0-17.9); LYMPHOCYTES # (AUTO) 1.6 X10'3 (1.1-4.8); LYMPHOCYTES % (AUTO) 18.8 % (21-51); MEAN CORPUSCULAR HEMOGLOBIN 31.6 PG (27.0-31.0); MEAN CORPUSCULAR HGB CONC 34.2 g/dL (33.0-36.5); MEAN CORPUSCULAR VOLUME 92.2 FL (78-98); MEAN PLATELET VOLUME 7.3 FL (7.4-10.4); MONOCYTES # (AUTO) 1.2 X10'3 (0-0.9); MONOCYTES % (AUTO) 13.5 % (2-12); NEUTROPHILS # (AUTO) 5.3 X10'3 (1.8-7.7); NEUTROPHILS % (AUTO) 61.3 % (42-75); PLATELET COUNT 300 X10'3 (140-440); RED BLOOD COUNT 4.16 X10'6 (4.70-6.10); RED CELL DISTRIBUTION WIDTH 14.2 % (11.5-14.5); WHITE BLOOD COUNT 8.7 X10'3 (4.5-11.0)
[2018-12-28 05:32] LABS: ALANINE AMINOTRANSFERASE 49 U/L (12-78); ALBUMIN 2.4 G/DL (3.4-5.0); ALBUMIN/GLOBULIN RATIO 0.7 (1.1-1.5); ALKALINE PHOSPHATASE 63 IU/L (46-116); ANION GAP 11 (8-16); ASPARTATE AMINO TRANSFERASE 136 U/L (10-37); BILIRUBIN,TOTAL 0.4 MG/DL (0.1-1.0); BLOOD UREA NITROGEN 37 MG/DL (7-18); BUN/CREATININE RATIO 3.2 (5.4-32.0); CALCIUM 8.5 MG/DL (8.5-10.1); CHLORIDE 99 MMOL/L (99-107); CREATININE 11.52 MG/DL (0.60-1.10); GLUCOSE 122 MG/DL (70-104); POTASSIUM 3.7 MMOL/L (3.5-5.1); SODIUM 135 MMOL/L (135-145); TOTAL CARBON DIOXIDE 25.4 MMOL/L (24-32); eGFR 5 ML/MIN
[2018-12-28 05:41] LABS: PHOSPHORUS 4.7 MG/DL (2.3-4.5); VANCOMYCIN,RANDOM 13.6 UG/ML
[2018-12-28 05:42] LABS: CREATINE KINASE 1354 U/L (39-308)
--- NOTE | 2018-12-28 06:06 | NUR ---
Problems reprioritized. Patient report given, questions answered & plan of care reviewed with iLsbet MAJOR.
[2018-12-28 07:00] VITALS: BP_SYST 140; BP_SYST 150; BP_DIAS 89; BP_DIAS 94
[2018-12-28] MEDS ORDERED: heparin 1,000 units/ml 10ml inj HE ONE (08:30)
[2018-12-28] MEDS: lactobacillus rhamnosus 10,000 MMU CELLS/CAPSULE PO SCH ×2 (09:04→20:03)
[2018-12-28] MEDS: docusate sod 100mg capsule PO SCH ×2 (09:04→20:00)
[2018-12-28] MEDS: heparin, porcine 5000 units/ml vial SQ SCH ×2 (09:04→20:04)
[2018-12-28] MEDS: methylnaltrexone br 12mg/0.6ml inj***SubQ only SQ SCH (09:04)
[2018-12-28 11:00] VITALS: BP_SYST 116; BP_SYST 142; BP_DIAS 76; BP_DIAS 89
[2018-12-28] MEDS: normal saline 1000ml 1,000 ML IV SCH (11:41)
[2018-12-28] MEDS: cefTAZidime inj. 1 GM in normal saline 100ml IV soln 100 ML IV SCH (15:00)
[2018-12-28] MEDS ORDERED: vancomycin inj 500 MG in normal saline 100ml IV soln 100 ML IV ONE (16:00)
[2018-12-28] MEDS: HYDROcodone/acetaminophen 10/325mg tab PO PRN ×2 (18:46→22:17)
[2018-12-28] MEDS: sennosides/docusate sodium tablet PO SCH (21:00)
--- NOTE | 2018-12-28 21:31 | NUR ---
Patient in room [facility] 357. I have received report from PEDRITO Frausto and had the opportunity to ask questions and assume patient care. Addendum: 12/28/18 at 2139 by Amanda Porter RN Amended: Links added.
[2018-12-28 21:38] VITALS: BP 167/131
[2018-12-29 00:05] VITALS: BP 155/88
[2018-12-29] MEDS: HYDROcodone/acetaminophen 10/325mg tab PO PRN ×5 (02:07→20:31)
[2018-12-29 06:25] LABS: ALANINE AMINOTRANSFERASE 44 U/L (12-78); ALBUMIN 2.7 G/DL (3.4-5.0); ALBUMIN/GLOBULIN RATIO 0.7 (1.1-1.5); ALKALINE PHOSPHATASE 66 IU/L (46-116); ANION GAP 8 (8-16); ASPARTATE AMINO TRANSFERASE 81 U/L (10-37); BILIRUBIN,TOTAL 0.4 MG/DL (0.1-1.0); BLOOD UREA NITROGEN 28 MG/DL (7-18); BUN/CREATININE RATIO 2.9 (5.4-32.0); CALCIUM 8.7 MG/DL (8.5-10.1); CHLORIDE 102 MMOL/L (99-107); CREATININE 9.53 MG/DL (0.60-1.10); GLUCOSE 97 MG/DL (70-104); PHOSPHORUS 4.4 MG/DL (2.3-4.5); POTASSIUM 4.2 MMOL/L (3.5-5.1); SODIUM 137 MMOL/L (135-145); TOTAL CARBON DIOXIDE 26.8 MMOL/L (24-32); TOTAL PROTEIN 6.5 G/DL (6.4-8.2); eGFR 6 ML/MIN
--- NOTE | 2018-12-29 06:26 | NUR ---
Problems reprioritized. Patient report given, questions answered & plan of care reviewed with PEDRITO Frausto. Addendum: 12/29/18 at 0626 by Amanda Porter RN Amended: Links added.
[2018-12-29 06:52] LABS: BASOPHILS # (AUTO) 0.1 X10'3 (0-0.2); EOSINOPHILS # (AUTO) 0.5 X10'3 (0-0.9); EOSINOPHILS % (AUTO) 5.3 % (0-6); HEMATOCRIT 41.4 % (42.0-52.0); HEMOGLOBIN 13.9 g/dl (14.0-17.9); LYMPHOCYTES % (AUTO) 22.5 % (21-51); MEAN CORPUSCULAR HGB CONC 33.7 g/dL (33.0-36.5); MEAN CORPUSCULAR VOLUME 92.2 FL (78-98); MEAN PLATELET VOLUME 7.4 FL (7.4-10.4); MONOCYTES % (AUTO) 11.8 % (2-12); NEUTROPHILS # (AUTO) 5.2 X10'3 (1.8-7.7); NEUTROPHILS % (AUTO) 59.4 % (42-75); PLATELET COUNT 347 X10'3 (140-440); RED BLOOD COUNT 4.49 X10'6 (4.70-6.10); RED CELL DISTRIBUTION WIDTH 14.2 % (11.5-14.5); WHITE BLOOD COUNT 8.7 X10'3 (4.5-11.0)
[2018-12-29 08:00] VITALS: BP 119/64
[2018-12-29] MEDS: docusate sod 100mg capsule PO SCH ×2 (08:00→20:00)
[2018-12-29] MEDS: lactobacillus rhamnosus 10,000 MMU CELLS/CAPSULE PO SCH ×2 (08:00→20:30)
[2018-12-29] MEDS: heparin, porcine 5000 units/ml vial SQ SCH ×2 (09:00→20:30)
--- NOTE | 2018-12-29 09:30 | NUR ---
Dr. Hill rounded and stated pt's sitter order may be d/c'd. Pt expressed he wants to be discharged today. Dr. Roque aware and stated pt is to not bear weight on affected foot for 1 month, will need a tunneled HD catheter placed for further dialysis, and will need HD arrangement made, as well as a proper discharge destination, and if he goes AMA "he will " without the plan of care being carried out. Dr. Hill stated it likely will take approximately one more week for pt to be made ready for discharge. stated he has discussed this daily with the pt, educating the pt fully in regards to his the safety needs of his discharge plan. Dr. Hill ordered PTx to work w/ pt (NWB on Right foot). stated if pt leaves AMA then the temporary HD catheter is to be dc'd first. PEDRITO Frausto and Maria Isabel VICTOR, notified.
[2018-12-29 11:00] VITALS: BP 140/59
[2018-12-29 18:00] VITALS: BP 140/86
[2018-12-29] MEDS: sennosides/docusate sodium tablet PO SCH (21:00)
--- NOTE | 2018-12-29 23:06 | NUR ---
Patient in room [facility] 357. I have received report from PEDRTIO Frausto and had the opportunity to ask questions and assume patient care. Addendum: 12/29/18 at 2310 by Amanda Porter RN Amended: Links added.
[2018-12-30] VITALS: BP 136/60
[2018-12-30] MEDS: HYDROcodone/acetaminophen 10/325mg tab PO PRN ×6 (00:08→23:24)
[2018-12-30] MEDS: ondansetron/PF 4mg/2ml inj IV PRN (00:09)
[2018-12-30] MEDS: VANCOMYCIN LEVEL IV SCH (03:20)
[2018-12-30 05:57] LABS: ALANINE AMINOTRANSFERASE 41 U/L (12-78); ALBUMIN 2.6 G/DL (3.4-5.0); ALBUMIN/GLOBULIN RATIO 0.7 (1.1-1.5); ALKALINE PHOSPHATASE 60 IU/L (46-116); ANION GAP 10 (8-16); ASPARTATE AMINO TRANSFERASE 42 U/L (10-37); BASOPHILS # (AUTO) 0.1 X10'3 (0-0.2); BASOPHILS % (AUTO) 1.4 % (0-1); BILIRUBIN,TOTAL 0.3 MG/DL (0.1-1.0); BLOOD UREA NITROGEN 38 MG/DL (7-18); BUN/CREATININE RATIO 3.5 (5.4-32.0); CALCIUM 8.9 MG/DL (8.5-10.1); CHLORIDE 101 MMOL/L (99-107); CREATININE 10.98 MG/DL (0.60-1.10); EOSINOPHILS # (AUTO) 0.4 X10'3 (0-0.9); EOSINOPHILS % (AUTO) 4.9 % (0-6); GLUCOSE 101 MG/DL (70-104); HEMATOCRIT 38.4 % (42.0-52.0); LYMPHOCYTES # (AUTO) 2.1 X10'3 (1.1-4.8); LYMPHOCYTES % (AUTO) 22.5 % (21-51); MEAN CORPUSCULAR HEMOGLOBIN 31.4 PG (27.0-31.0); MEAN CORPUSCULAR HGB CONC 33.9 g/dL (33.0-36.5); MEAN CORPUSCULAR VOLUME 92.6 FL (78-98); MEAN PLATELET VOLUME 7.4 FL (7.4-10.4); MONOCYTES # (AUTO) 0.9 X10'3 (0-0.9); MONOCYTES % (AUTO) 10.3 % (2-12); NEUTROPHILS # (AUTO) 5.6 X10'3 (1.8-7.7); NEUTROPHILS % (AUTO) 60.9 % (42-75); PLATELET COUNT 356 X10'3 (140-440); POTASSIUM 4.5 MMOL/L (3.5-5.1); RED BLOOD COUNT 4.15 X10'6 (4.70-6.10); RED CELL DISTRIBUTION WIDTH 13.9 % (11.5-14.5); SODIUM 137 MMOL/L (135-145); TOTAL CARBON DIOXIDE 25.9 MMOL/L (24-32); TOTAL PROTEIN 6.1 G/DL (6.4-8.2); WHITE BLOOD COUNT 9.2 X10'3 (4.5-11.0); eGFR 5 ML/MIN
[2018-12-30 06:00] VITALS: BP 124/64
[2018-12-30 06:01] LABS: MAGNESIUM 2.1 MG/DL (1.5-2.4); PHOSPHORUS 5.5 MG/DL (2.3-4.5)
--- NOTE | 2018-12-30 06:25 | NUR ---
Patient in room [facility] 357. I have received report from PEDRITO Patel and had the opportunity to ask questions and assume patient care.
--- NOTE | 2018-12-30 06:32 | NUR ---
Problems reprioritized. Patient report given, questions answered & plan of care reviewed with PEDRITO Sierra. Addendum: 12/30/18 at 0633 by Amanda Porter RN Amended: Links added.
[2018-12-30 07:22] LABS: VANCOMYCIN,RANDOM 12.9 UG/ML
[2018-12-30] MEDS ORDERED: vancomycin inj 500 MG in normal saline 100ml IV soln 100 ML IV ONE (08:55)
[2018-12-30] MEDS ORDERED: heparin 1,000unit/ml 10ml vial 10 ML IV ONE (09:01)
[2018-12-30] MEDS ORDERED: heparin 1,000 units/ml 10ml inj HE ONE (09:05)
[2018-12-30] MEDS: heparin, porcine 5000 units/ml vial SQ SCH ×2 (09:06→20:16)
[2018-12-30] MEDS: docusate sod 100mg capsule PO SCH ×2 (09:06→20:00)
[2018-12-30] MEDS: lactobacillus rhamnosus 10,000 MMU CELLS/CAPSULE PO SCH ×2 (09:06→20:16)
[2018-12-30 11:00] VITALS: BP 149/98
[2018-12-30] MEDS ORDERED: cefTAZidime inj 2 GM in normal saline 100ml IV soln 100 ML IV SCH (14:00)
--- NOTE | 2018-12-30 16:29 | NUR ---
Mother brought pt two pares of black shoes and an electric shaver. Items put on pt's belongings.
--- NOTE | 2018-12-30 18:20 | NUR ---
Problems reprioritized. Patient report given, questions answered & plan of care reviewed with PEDRITO Simmons.
--- NOTE | 2018-12-30 18:42 | NUR ---
Received report from Mariela MAJOR pt is awake on RA requesting pain medication
[2018-12-30 19:00] VITALS: BP 138/78
[2018-12-30] MEDS: sennosides/docusate sodium tablet PO SCH (20:49)
[2018-12-31 00:23] VITALS: BP 130/80
[2018-12-31] MEDS: HYDROcodone/acetaminophen 10/325mg tab PO PRN ×5 (04:57→22:21)
[2018-12-31 06:30] VITALS: BP 134/76
--- NOTE | 2018-12-31 06:35 | NUR ---
Patient in room [facility]. I have received report from PEDRITO Simmons and had the opportunity to ask questions and assume patient care.
--- NOTE | 2018-12-31 06:37 | NUR ---
Problems reprioritized. Patient report given, questions answered & plan of care reviewed with Indigo RN.
[2018-12-31 06:41] LABS: ALANINE AMINOTRANSFERASE 43 U/L (12-78); ALBUMIN 2.7 G/DL (3.4-5.0); ALBUMIN/GLOBULIN RATIO 0.7 (1.1-1.5); ALKALINE PHOSPHATASE 63 IU/L (46-116); ANION GAP 12 (8-16); ASPARTATE AMINO TRANSFERASE 36 U/L (10-37); BILIRUBIN,TOTAL 0.3 MG/DL (0.1-1.0); BLOOD UREA NITROGEN 31 MG/DL (7-18); BUN/CREATININE RATIO 3.4 (5.4-32.0); CALCIUM 8.7 MG/DL (8.5-10.1); CHLORIDE 101 MMOL/L (99-107); CREATININE 9.24 MG/DL (0.60-1.10); GLUCOSE 101 MG/DL (70-104); PHOSPHORUS 5.1 MG/DL (2.3-4.5); SODIUM 138 MMOL/L (135-145); TOTAL CARBON DIOXIDE 25.3 MMOL/L (24-32); TOTAL PROTEIN 6.6 G/DL (6.4-8.2); eGFR 6 ML/MIN
[2018-12-31 06:43] LABS: POTASSIUM 4.5 MMOL/L (3.5-5.1)
[2018-12-31 06:51] LABS: BASOPHILS # (AUTO) 0.1 X10'3 (0-0.2); BASOPHILS % (AUTO) 0.9 % (0-1); EOSINOPHILS # (AUTO) 0.5 X10'3 (0-0.9); HEMATOCRIT 40.8 % (42.0-52.0); HEMOGLOBIN 13.6 g/dl (14.0-17.9); LYMPHOCYTES # (AUTO) 1.7 X10'3 (1.1-4.8); LYMPHOCYTES % (AUTO) 19.1 % (21-51); MEAN CORPUSCULAR HEMOGLOBIN 31.3 PG (27.0-31.0); MEAN CORPUSCULAR HGB CONC 33.4 g/dL (33.0-36.5); MEAN CORPUSCULAR VOLUME 93.5 FL (78-98); MEAN PLATELET VOLUME 7.5 FL (7.4-10.4); MONOCYTES % (AUTO) 10.9 % (2-12); NEUTROPHILS # (AUTO) 5.8 X10'3 (1.8-7.7); NEUTROPHILS % (AUTO) 64.1 % (42-75); PLATELET COUNT 378 X10'3 (140-440); RED BLOOD COUNT 4.36 X10'6 (4.70-6.10); RED CELL DISTRIBUTION WIDTH 14.5 % (11.5-14.5)
[2018-12-31] MEDS: lactobacillus rhamnosus 10,000 MMU CELLS/CAPSULE PO SCH ×2 (09:41→19:44)
[2018-12-31] MEDS: docusate sod 100mg capsule PO SCH ×2 (09:41→19:44)
[2018-12-31] MEDS: heparin, porcine 5000 units/ml vial SQ SCH ×2 (09:42→19:44)
[2018-12-31 11:30] VITALS: BP 158/96
--- NOTE | 2018-12-31 18:10 | NUR ---
Problems reprioritized. Patient report given, questions answered & plan of care reviewed with PEDRITO Simmons.
--- NOTE | 2018-12-31 18:28 | NUR ---
Received report from Indigo MAJOR pt is awake and alert talking on the phone, on RA, in no apparent distress, call light and items of freq use within reach.
[2018-12-31 19:30] VITALS: BP 143/78
[2018-12-31] MEDS: sennosides/docusate sodium tablet PO SCH (20:57)
[2018-12-31] MEDS: acetaminophen 325mg tablet PO PRN (22:58)
[2019-01-01 00:35] VITALS: BP 154/70
[2019-01-01] MEDS: HYDROcodone/acetaminophen 10/325mg tab PO PRN ×4 (04:57→19:13)
[2019-01-01 06:14] LABS: BASOPHILS # (AUTO) 0.1 X10'3 (0-0.2); EOSINOPHILS # (AUTO) 0.3 X10'3 (0-0.9); EOSINOPHILS % (AUTO) 3.8 % (0-6); HEMATOCRIT 38.5 % (42.0-52.0); HEMOGLOBIN 13.2 g/dl (14.0-17.9); LYMPHOCYTES # (AUTO) 1.9 X10'3 (1.1-4.8); LYMPHOCYTES % (AUTO) 21.9 % (21-51); MEAN CORPUSCULAR HEMOGLOBIN 32.2 PG (27.0-31.0); MEAN CORPUSCULAR HGB CONC 34.3 g/dL (33.0-36.5); MEAN CORPUSCULAR VOLUME 93.8 FL (78-98); MEAN PLATELET VOLUME 7.3 FL (7.4-10.4); MONOCYTES # (AUTO) 0.9 X10'3 (0-0.9); MONOCYTES % (AUTO) 10.5 % (2-12); NEUTROPHILS # (AUTO) 5.3 X10'3 (1.8-7.7); NEUTROPHILS % (AUTO) 62.8 % (42-75); PLATELET COUNT 397 X10'3 (140-440); RED BLOOD COUNT 4.11 X10'6 (4.70-6.10); RED CELL DISTRIBUTION WIDTH 14.2 % (11.5-14.5); WHITE BLOOD COUNT 8.5 X10'3 (4.5-11.0)
--- NOTE | 2019-01-01 06:15 | NUR ---
Patient in room [facility]. I have received report from PEDRITO Simmons and had the opportunity to ask questions and assume patient care.
[2019-01-01 06:27] LABS: ALANINE AMINOTRANSFERASE 36 U/L (12-78); ALBUMIN 2.8 G/DL (3.4-5.0); ALBUMIN/GLOBULIN RATIO 0.8 (1.1-1.5); ALKALINE PHOSPHATASE 63 IU/L (46-116); ANION GAP 11 (8-16); ASPARTATE AMINO TRANSFERASE 24 U/L (10-37); BILIRUBIN,TOTAL 0.3 MG/DL (0.1-1.0); BLOOD UREA NITROGEN 38 MG/DL (7-18); BUN/CREATININE RATIO 3.5 (5.4-32.0); CALCIUM 8.5 MG/DL (8.5-10.1); CHLORIDE 101 MMOL/L (99-107); GLUCOSE 95 MG/DL (70-104); PHOSPHORUS 5.9 MG/DL (2.3-4.5); POTASSIUM 4.5 MMOL/L (3.5-5.1); SODIUM 138 MMOL/L (135-145); TOTAL CARBON DIOXIDE 26.3 MMOL/L (24-32); TOTAL PROTEIN 6.5 G/DL (6.4-8.2); eGFR 5 ML/MIN
[2019-01-01 06:30] VITALS: BP 156/82
--- NOTE | 2019-01-01 06:36 | NUR ---
Problems reprioritized. Patient report given, questions answered & plan of care reviewed with Indigo RN.
[2019-01-01] MEDS: docusate sod 100mg capsule PO SCH ×2 (09:11→21:19)
[2019-01-01] MEDS: lactobacillus rhamnosus 10,000 MMU CELLS/CAPSULE PO SCH ×2 (09:11→21:18)
[2019-01-01] MEDS ORDERED: ondansetron 4mg rapidly disintigrating tab PO PRN (09:20)
[2019-01-01 11:30] VITALS: BP 125/81
--- NOTE | 2019-01-01 17:25 | NUR ---
reassessment: Pt PO has decreased to 25% and now refusing meals past 2 days. Pt vomiting this AM and to receive zofran today per MD note. NPO at midnight tonight for TDC placement tomorrow. Phos 5.9; would benefit from Phos-binder per MD approval. LBM 12/29. Will monitor for additional protein needs s/p TDC. Rec: 1. continue renal/mechanical soft/2L fluid-restricted diet per MD 2. monitor for ONS needs 3. routine bowel care for constipation 4. wt w/ HD Addendum: 01/01/19 at [address] Amended: Links added.
--- NOTE | 2019-01-01 19:00 | NUR ---
Problems reprioritized. Patient report given, questions answered & plan of care reviewed with Shalini RN.
[2019-01-01 19:30] VITALS: BP 150/84
[2019-01-01] MEDS: sennosides/docusate sodium tablet PO SCH (21:19)
[2019-01-02] VITALS: BP 150/65
[2019-01-02] MEDS: HYDROcodone/acetaminophen 10/325mg tab PO PRN ×6 (02:01→23:03)
[2019-01-02 06:10] LABS: BASOPHILS # (AUTO) 0.1 X10'3 (0-0.2); BASOPHILS % (AUTO) 1.1 % (0-1); EOSINOPHILS # (AUTO) 0.4 X10'3 (0-0.9); EOSINOPHILS % (AUTO) 4.2 % (0-6); HEMATOCRIT 38.4 % (42.0-52.0); HEMOGLOBIN 12.8 g/dl (14.0-17.9); LYMPHOCYTES # (AUTO) 1.8 X10'3 (1.1-4.8); LYMPHOCYTES % (AUTO) 17.2 % (21-51); MEAN CORPUSCULAR HGB CONC 33.4 g/dL (33.0-36.5); MEAN CORPUSCULAR VOLUME 92.9 FL (78-98); MEAN PLATELET VOLUME 7.3 FL (7.4-10.4); MONOCYTES % (AUTO) 9.8 % (2-12); NEUTROPHILS % (AUTO) 67.7 % (42-75); PLATELET COUNT 425 X10'3 (140-440); RED BLOOD COUNT 4.13 X10'6 (4.70-6.10); WHITE BLOOD COUNT 10.4 X10'3 (4.5-11.0)
--- NOTE | 2019-01-02 06:25 | NUR ---
Patient in room [facility]. I have received report from PEDRITO Loya and had the opportunity to ask questions and assume patient care.
[2019-01-02 06:30] VITALS: BP 125/59
[2019-01-02 06:43] LABS: ALANINE AMINOTRANSFERASE 31 U/L (12-78); ALBUMIN/GLOBULIN RATIO 0.8 (1.1-1.5); ALKALINE PHOSPHATASE 65 IU/L (46-116); ANION GAP 10 (8-16); ASPARTATE AMINO TRANSFERASE 25 U/L (10-37); BILIRUBIN,TOTAL 0.4 MG/DL (0.1-1.0); BLOOD UREA NITROGEN 48 MG/DL (7-18); BUN/CREATININE RATIO 3.8 (5.4-32.0); CHLORIDE 100 MMOL/L (99-107); CREATININE 12.71 MG/DL (0.60-1.10); GLUCOSE 104 MG/DL (70-104); MAGNESIUM 2.1 MG/DL (1.5-2.4); PHOSPHORUS 7.1 MG/DL (2.3-4.5); POTASSIUM 4.5 MMOL/L (3.5-5.1); SODIUM 136 MMOL/L (135-145); TOTAL CARBON DIOXIDE 26.3 MMOL/L (24-32); TOTAL PROTEIN 6.7 G/DL (6.4-8.2); eGFR 4 ML/MIN
[2019-01-02] MEDS ORDERED: COL100C PO (09:16)
[2019-01-02] MEDS ORDERED: ONDA4TAB12 PO (09:16)
[2019-01-02] MEDS: docusate sod 100mg capsule PO SCH ×2 (09:18→20:24)
[2019-01-02] MEDS: lactobacillus rhamnosus 10,000 MMU CELLS/CAPSULE PO SCH ×2 (09:18→20:24)
[2019-01-02] MEDS ORDERED: normal saline 1000ml 100 ML IV PRN (09:19)
[2019-01-02] MEDS ORDERED: normal saline 1000ml 250 ML IV PRN (09:19)
[2019-01-02] MEDS ORDERED: metoclopramide 10mg tablet PO PRN (09:20)
[2019-01-02] MEDS ORDERED: heparin 1,000 units/ml 10ml inj HE ONE ×2 (09:25→17:15)
[2019-01-02 11:30] VITALS: BP 128/76
[2019-01-02] MEDS ORDERED: heparin 1,000unit/ml 10ml vial 10 ML ONE (13:27)
[2019-01-02] MEDS ORDERED: LIDOcaine 1%/PF 5ML 10 MG/ML VIAL ONE (13:27)
--- NOTE | 2019-01-02 16:47 | NUR ---
reassessment: Pt seen by RD and requested renal diet ed; RD provided pt w/ written/verbal renal diet ed along w/ RD contact information in case further questions. Pt verbalized importance of proteins, electrolytes, high electrolyte food sources, and fluids following ed. Pt reports low PO past 2 days r/t vomiting following any attempt at solid food PO but able to tolerate liquids. Pt 2L fluid-restriction has been edited by RN to allow 1L dietary and 1L nursing that way whole milk w/ breakfasts can be sent to pt as well as other renal-friendly beverages since pt only source of nutrition at this time. LBM 01/01. Pt would benefit from Phos-binder given 7.1 per MD approval. Will continue to monitor. Rec: 1. continue renal/mechanical soft/2L fluid-restricted diet per MD 2. whole milk at breakfasts 3. routine bowel care for constipation 4. Phos binder per MD approval; 7.1 today 5. wt w/ HD Addendum: 01/02/19 at [address] Amended: Links added.
--- NOTE | 2019-01-02 18:30 | NUR ---
Problems reprioritized. Patient report given, questions answered & plan of care reviewed with PEDRITO Meredith.
--- NOTE | 2019-01-02 18:43 | NUR ---
Patient in room [facility]. I have received report from Indigo MAJOR and had the opportunity to ask questions and assume patient care.
[2019-01-02 20:00] VITALS: BP 140/68
[2019-01-02] MEDS: sennosides/docusate sodium tablet PO SCH (20:24)
[2019-01-02 22:22] LABS: UREA NITROGEN 24HR,URINE 2.3 GM/24HR (7-20)
[2019-01-03] VITALS: BP 151/86
[2019-01-03 00:21] LABS: CLARITY,URINE CLEAR (Clear); COLOR,URINE YELLOW (Yellow); GLUCOSE, URINE NEGATIVE (Neg); KETONES,URINE NEGATIVE (Neg); LEUKOCYTE ESTERASE ,URINE TRACE (Neg); NITRITES, URINE NEGATIVE (Neg); OCCULT BLOOD,URINE MODERATE (Neg); PROTEIN,URINE 30 mg/dl (Neg); UROBILINOGEN,URINE 0.2 E.U/dL (0.2-1.0)
[2019-01-03 00:25] LABS: UA COLLECTION TYPE URINAL
[2019-01-03 00:28] LABS: RBC,URINE 0-2 /HPF (0-2)
[2019-01-03 00:29] LABS: BACTERIA,URINE 1+ /HPF (Neg); CELLULAR CAST 0-4 /LPF (NEGATIVE); FINE GRANULAR CAST 0-3 /LPF (NEGATIVE); SQUAMOUS EPITHELIAL CELL,UR FEW /LPF (FEW); TRANSITIONAL EPI CELLS,URINE FEW /HPF
[2019-01-03 00:46] LABS: UA EOSINOPHILS NO EOS /HPF
--- NOTE | 2019-01-03 06:00 | NUR ---
Patient in room [facility]. I have received report from Viri MAJOR and had the opportunity to ask questions and assume patient care.
--- NOTE | 2019-01-03 06:09 | NUR ---
Problems reprioritized. Patient report given, questions answered & plan of care reviewed with Whitney MAJOR and Radha MAJOR.
[2019-01-03 06:27] LABS: BASOPHILS # (AUTO) 0.1 X10'3 (0-0.2); BASOPHILS % (AUTO) 1.2 % (0-1); EOSINOPHILS # (AUTO) 0.3 X10'3 (0-0.9); EOSINOPHILS % (AUTO) 3.5 % (0-6); HEMATOCRIT 38.8 % (42.0-52.0); HEMOGLOBIN 13.3 g/dl (14.0-17.9); LYMPHOCYTES # (AUTO) 1.5 X10'3 (1.1-4.8); LYMPHOCYTES % (AUTO) 15.7 % (21-51); MEAN CORPUSCULAR HEMOGLOBIN 31.9 PG (27.0-31.0); MEAN CORPUSCULAR HGB CONC 34.4 g/dL (33.0-36.5); MEAN CORPUSCULAR VOLUME 92.8 FL (78-98); MEAN PLATELET VOLUME 7.4 FL (7.4-10.4); MONOCYTES # (AUTO) 0.9 X10'3 (0-0.9); MONOCYTES % (AUTO) 9.5 % (2-12); NEUTROPHILS # (AUTO) 6.8 X10'3 (1.8-7.7); NEUTROPHILS % (AUTO) 70.1 % (42-75); PLATELET COUNT 410 X10'3 (140-440); RED BLOOD COUNT 4.18 X10'6 (4.70-6.10); RED CELL DISTRIBUTION WIDTH 13.8 % (11.5-14.5); WHITE BLOOD COUNT 9.7 X10'3 (4.5-11.0)
[2019-01-03 06:37] LABS: ALANINE AMINOTRANSFERASE 29 U/L (12-78); ALBUMIN/GLOBULIN RATIO 0.8 (1.1-1.5); ALKALINE PHOSPHATASE 69 IU/L (46-116); ANION GAP 11 (8-16); ASPARTATE AMINO TRANSFERASE 14 U/L (10-37); BILIRUBIN,TOTAL 0.3 MG/DL (0.1-1.0); BLOOD UREA NITROGEN 32 MG/DL (7-18); BUN/CREATININE RATIO 3.7 (5.4-32.0); CHLORIDE 101 MMOL/L (99-107); CREATININE 8.63 MG/DL (0.60-1.10); GLUCOSE 110 MG/DL (70-104); PHOSPHORUS 5.7 MG/DL (2.3-4.5); POTASSIUM 4.3 MMOL/L (3.5-5.1); SODIUM 137 MMOL/L (135-145); TOTAL CARBON DIOXIDE 24.9 MMOL/L (24-32); TOTAL PROTEIN 6.9 G/DL (6.4-8.2); eGFR 7 ML/MIN
--- NOTE | 2019-01-03 06:51 | NUR ---
Patient in room [facility]. I have received report from Viri MAJOR and had the opportunity to ask questions and assume patient care.
[2019-01-03 07:00] VITALS: BP 137/71
[2019-01-03] MEDS: HYDROcodone/acetaminophen 10/325mg tab PO PRN ×2 (08:49→14:43)
[2019-01-03] MEDS: docusate sod 100mg capsule PO SCH (08:49)
[2019-01-03] MEDS: lactobacillus rhamnosus 10,000 MMU CELLS/CAPSULE PO SCH (08:49)
[2019-01-03] MEDS: heparin, porcine 5000 units/ml vial SQ SCH (08:50)
[2019-01-03 11:00] VITALS: BP 149/94
--- NOTE | 2019-01-03 12:19 | NUR ---
Left message for [facility] with [employer] at [phone] awaiting response for ride for patient .
--- NOTE | 2019-01-03 14:50 | NUR ---
Patients discharge instructions reviewed with patient and patient verbalized understanding. Patient had no IV access patient instructed on how to keep TDC Clean and dry. Patient was taken to lobby where mother in law is waiting for him. patient aware I did address pain medications with Dr Hill and he can ask at [facility] for pain medication and see if they will write him a script. Per Dr Hill ok to take Aleve for pain and to keep boot Clean and dry.
[2019-01-04] MEDS ORDERED: GABA300C PO (23:04)
== END 2019-01-03 14:51 | disposition home or self-care (01) | DRG 812 ==
LOC: ER 14:14 → ICU 2S 20:50 → CMPBEDREQ 21:13 → SUR 3N 12-25 11:57
PROVIDERS: ADMIT Internal Medicine Critical Care Medicine; ATTEND Internal Medicine Critical Care Medicine
PROC: 5A1D70Z Performance of Urinary Filtration, Intermittent, Less than 6 Hours Per Day (ICD-10-PCS; 2018-12-23)
PROC: 5A1D70Z Performance of Urinary Filtration, Intermittent, Less than 6 Hours Per Day (ICD-10-PCS; 2018-12-24)
PROC: 5A1D70Z Performance of Urinary Filtration, Intermittent, Less than 6 Hours Per Day (ICD-10-PCS; 2018-12-26)
PROC: 5A1D70Z Performance of Urinary Filtration, Intermittent, Less than 6 Hours Per Day (ICD-10-PCS; 2018-12-28)
PROC: 5A1D70Z Performance of Urinary Filtration, Intermittent, Less than 6 Hours Per Day (ICD-10-PCS; 2018-12-30)
PROC: 0JH63XZ Insertion of Tunneled Vascular Access Device into Chest Subcutaneous Tissue and Fascia, Percutaneous Approach (ICD-10-PCS; principal; 2019-01-02)
PROC: 5A1D70Z Performance of Urinary Filtration, Intermittent, Less than 6 Hours Per Day (ICD-10-PCS; 2019-01-02)
PROC: 02H633Z Insertion of Infusion Device into Right Atrium, Percutaneous Approach (ICD-10-PCS; 2019-01-02)
PROC: B2141ZZ Fluoroscopy of Right Heart using Low Osmolar Contrast (ICD-10-PCS; 2019-01-02)
PROC: B244ZZZ Ultrasonography of Right Heart (ICD-10-PCS; 2019-01-02)
DX: T40.2X1A Poisoning by other opioids, accidental (unintentional), initial encounter (principal); G93.40 Encephalopathy, unspecified; N17.9 Acute kidney failure, unspecified; M62.82 Rhabdomyolysis; T79.A21A Traumatic compartment syndrome of right lower extremity, initial encounter; F29 Unspecified psychosis not due to a substance or known physiological condition; L03.115 Cellulitis of right lower limb; T43.621A Poisoning by amphetamines, accidental (unintentional), initial encounter; F43.10 Post-traumatic stress disorder, unspecified; F60.9 Personality disorder, unspecified; M21.371 Foot drop, right foot; F10.10 Alcohol abuse, uncomplicated; F19.10 Other psychoactive substance abuse, uncomplicated; M60.861 Other myositis, right lower leg; S93.401A Sprain of unspecified ligament of right ankle, initial encounter; Z88.0 Allergy status to penicillin; V89.2XXA Person injured in unspecified motor-vehicle accident, traffic, initial encounter; Y93.89 Activity, other specified; Y92.89 Other specified places as the place of occurrence of the external cause; Y99.8 Other external cause status
CPT/HCPCS: 36415; 36558; 70450; 71045; 73700; 76937; 77001; 80053; 80202; 80305; 80320; 80329; 81001; 82140; 82550; 82553; 82570; 82810; 83605; 83735; 83935; 84100; 84133; 84145; 84156; 84300; 84443; 84560; 85025; 85610; 85730; 87040; 87081; 87088; 87207; 87340; 93971; 96361; 96372; 96374; 96376; 97110; 97116; 97161; 97530; 99291; A9270; C1750; C1894; E1594; G0257; G0378; J0690; J0713; J1630; J1644; J2060; J2150; J2212; J2270; J2405; J3370; J7030; Q0163

== ENCOUNTER 2019-01-04 22:45 | Emergency (ER) | payer MEDICAID ==
[~2019-01-04] VITALS: Ht 190.5 cm; Wt 51.6 kg
[~2019-01-04 22:45] MED LIST changes: -CLIN150C8 PO; +COL100C PO; -HYDR-4353 PO; +NO HOME MEDS; +ONDA4TAB12 PO
[2019-01-04] MEDS ORDERED: GABA300C PO (23:04)
--- NOTE | 2019-01-04 23:06 | NUR ---
PT REPORTS RESOLVING SYMPTOMS.
[2019-01-04 23:15] VITALS: BP 175/88
== END 2019-01-04 23:40 | disposition home or self-care (01) ==
LOC: ER 22:46
DX: I10 Essential (primary) hypertension (principal); R60.0 Localized edema; F17.200 Nicotine dependence, unspecified, uncomplicated; F14.90 Cocaine use, unspecified, uncomplicated; Z88.0 Allergy status to penicillin; Z88.8 Allergy status to other drugs, medicaments and biological substances
CPT/HCPCS: 93005; 99283

== ENCOUNTER 2019-01-10 14:47 | Emergency (ER) | payer MEDICAID ==
[~2019-01-10] VITALS: Ht 193 cm; Wt 113.6 kg
[~2019-01-10 14:47] MED LIST changes: +GABA300C PO
[2019-01-10 14:51] VITALS: BP 135/88
[2019-01-10] MEDS ORDERED: HYDROcodone/acetaminophen 5mg/325mg tablet PO ONE (16:20)
[2019-01-10] MEDS ORDERED: HYDR-3965 PO (16:32)
== END 2019-01-10 17:52 | disposition home or self-care (01) ==
LOC: ER 14:47
DX: S93.491D Sprain of other ligament of right ankle, subsequent encounter (principal); F10.10 Alcohol abuse, uncomplicated; F15.90 Other stimulant use, unspecified, uncomplicated; F14.90 Cocaine use, unspecified, uncomplicated; Z88.0 Allergy status to penicillin; Z88.8 Allergy status to other drugs, medicaments and biological substances; Z79.899 Other long term (current) drug therapy; X58.XXXD Exposure to other specified factors, subsequent encounter
CPT/HCPCS: 73630; 99284

== ENCOUNTER 2019-01-17 13:50 | Emergency (ER) | payer MEDICAID ==
[~2019-01-17] VITALS: Ht 190.5 cm; Wt 113.6 kg
[~2019-01-17 13:50] MED LIST changes: +HYDR-3965 PO
[2019-01-17 14:28] LABS: BASOPHILS # (AUTO) 0.1 X10'3 (0-0.2); BASOPHILS % (AUTO) 1.1 % (0-1); EOSINOPHILS # (AUTO) 0.2 X10'3 (0-0.9); EOSINOPHILS % (AUTO) 2.1 % (0-6); HEMATOCRIT 39.1 % (42.0-52.0); HEMOGLOBIN 13.6 g/dl (14.0-17.9); LYMPHOCYTES # (AUTO) 1.9 X10'3 (1.1-4.8); LYMPHOCYTES % (AUTO) 19.3 % (21-51); MEAN CORPUSCULAR HEMOGLOBIN 31.4 PG (27.0-31.0); MEAN CORPUSCULAR HGB CONC 34.8 g/dL (33.0-36.5); MEAN CORPUSCULAR VOLUME 90.3 FL (78-98); MEAN PLATELET VOLUME 7.1 FL (7.4-10.4); MONOCYTES # (AUTO) 0.9 X10'3 (0-0.9); MONOCYTES % (AUTO) 9.2 % (2-12); NEUTROPHILS # (AUTO) 6.7 X10'3 (1.8-7.7); NEUTROPHILS % (AUTO) 68.3 % (42-75); PLATELET COUNT 426 X10'3 (140-440); RED BLOOD COUNT 4.34 X10'6 (4.70-6.10); RED CELL DISTRIBUTION WIDTH 13.3 % (11.5-14.5); WHITE BLOOD COUNT 9.8 X10'3 (4.5-11.0)
[2019-01-17 14:32] LABS: ALANINE AMINOTRANSFERASE 21 U/L (12-78); ALBUMIN 4.1 G/DL (3.4-5.0); ALBUMIN/GLOBULIN RATIO 1.1 (1.1-1.5); ALKALINE PHOSPHATASE 74 IU/L (46-116); ANION GAP 15 (8-16); ASPARTATE AMINO TRANSFERASE 14 U/L (10-37); BILIRUBIN,TOTAL 0.5 MG/DL (0.1-1.0); BLOOD UREA NITROGEN 22 MG/DL (7-18); BUN/CREATININE RATIO 6.5 (5.4-32.0); CALCIUM 10.2 MG/DL (8.5-10.1); CHLORIDE 102 MMOL/L (99-107); CREATININE 3.41 MG/DL (0.60-1.10); GLUCOSE 98 MG/DL (70-104); POTASSIUM 3.2 MMOL/L (3.5-5.1); SODIUM 139 MMOL/L (135-145); TOTAL CARBON DIOXIDE 22.5 MMOL/L (24-32); eGFR 20 ML/MIN
[2019-01-17 14:38] VITALS: BP 169/106
[2019-01-17 14:52] LABS: PARTIAL THROMBOPLASTIN TIME 26 SECONDS (22-32)
[2019-01-17 15:03] LABS: CLARITY,URINE CLEAR (Clear); COLOR,URINE YELLOW (Yellow); GLUCOSE, URINE NEGATIVE (Neg); KETONES,URINE NEGATIVE (Neg); LEUKOCYTE ESTERASE ,URINE SMALL (Neg); NITRITES, URINE NEGATIVE (Neg); OCCULT BLOOD,URINE TRACE-INTACT (Neg); PH,URINE 8.5 (4.8-8.0); PROTEIN,URINE TRACE mg/dl (Neg); UROBILINOGEN,URINE 0.2 E.U/dL (0.2-1.0)
[2019-01-17 15:24] LABS: UA COLLECTION TYPE VOIDED
[2019-01-17 16:00] LABS: BACTERIA,URINE FEW /HPF (Neg); RBC,URINE 0-2 /HPF (0-2); SQUAMOUS EPITHELIAL CELL,UR FEW /LPF (FEW); WBC CLUMPS,URINE FEW /HPF (NEGATIVE)
== END 2019-01-17 16:04 | disposition home or self-care (01) ==
LOC: ER 13:51
DX: M79.671 Pain in right foot (principal); R61 Generalized hyperhidrosis; F10.10 Alcohol abuse, uncomplicated; F15.90 Other stimulant use, unspecified, uncomplicated; F14.90 Cocaine use, unspecified, uncomplicated; N18.6 End stage renal disease; Z99.2 Dependence on renal dialysis; Z88.0 Allergy status to penicillin; Z88.8 Allergy status to other drugs, medicaments and biological substances; Z79.899 Other long term (current) drug therapy; Z60.2 Problems related to living alone
CPT/HCPCS: 36415; 71045; 80053; 81001; 83605; 84145; 85025; 85610; 85730; 87040; 87088; 93926; 99284

== ENCOUNTER 2019-01-19 21:22 | Emergency (ER) | payer MEDICAID ==
[~2019-01-19] VITALS: Ht 193 cm; Wt 109.1 kg
[~2019-01-19 21:22] MED LIST changes: -HYDR-3965 PO
[2019-01-19 21:24] VITALS: BP 173/112
== END 2019-01-19 23:17 | disposition home or self-care (01) ==
LOC: ER 21:22
DX: S40.811A Abrasion of right upper arm, initial encounter (principal); T82.838A Hemorrhage due to vascular prosthetic devices, implants and grafts, initial encounter; F15.90 Other stimulant use, unspecified, uncomplicated; F14.90 Cocaine use, unspecified, uncomplicated; Z88.0 Allergy status to penicillin; Z88.8 Allergy status to other drugs, medicaments and biological substances; Z99.2 Dependence on renal dialysis; W19.XXXA Unspecified fall, initial encounter; Y93.89 Activity, other specified; Y92.89 Other specified places as the place of occurrence of the external cause; Y99.9 Unspecified external cause status
CPT/HCPCS: 71045; 99283

== ENCOUNTER 2019-11-05 19:18 | Emergency (ER) | payer MEDICAID ==
[~2019-11-05] VITALS: Ht 193 cm; Wt 118.0 kg
[2019-11-05 19:30] VITALS: BP 179/87
[2019-11-05] MEDS ORDERED: orphenadrine citrate 60mg/2ml inj. IM ONE (20:25)
[2019-11-05] MEDS ORDERED: ketorolac tromethamine 15mg/ml inj. IM ONE (20:25)
[2019-11-05] MEDS ORDERED: IBUP-1984 PO (20:26)
[2019-11-05] MEDS ORDERED: ORPH100T2 PO (20:26)
== END 2019-11-05 20:55 | disposition home or self-care (01) ==
LOC: ER 19:19
DX: M54.5 Low back pain (principal); F10.10 Alcohol abuse, uncomplicated; F15.90 Other stimulant use, unspecified, uncomplicated; F14.90 Cocaine use, unspecified, uncomplicated; Z88.0 Allergy status to penicillin; Z88.8 Allergy status to other drugs, medicaments and biological substances; Z79.899 Other long term (current) drug therapy; Y90.9 Presence of alcohol in blood, level not specified
CPT/HCPCS: 96372; 99284; J1885

== ENCOUNTER 2020-01-01 15:43 | Emergency (ER) | payer MEDICAID ==
[~2020-01-01] VITALS: Ht 190.5 cm; Wt 93.3 kg
[~2020-01-01 15:43] MED LIST changes: +ORPH100T2 PO
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
[2020-01-01] MEDS ORDERED: LACT1CAP60 PO (16:56)
[2020-01-01] MEDS ORDERED: SULF1TAB49 PO (16:56)
[2020-01-01] MEDS ORDERED: CEPH500C5 PO (16:56)
[2020-01-01 17:53] VITALS: BP 123/84
== END 2020-01-01 17:50 | disposition home or self-care (01) ==
LOC: ER 15:43
DX: S90.112A Contusion of left great toe without damage to nail, initial encounter (principal); L02.415 Cutaneous abscess of right lower limb; L02.416 Cutaneous abscess of left lower limb; X58.XXXA Exposure to other specified factors, initial encounter; Y93.89 Activity, other specified; Y92.89 Other specified places as the place of occurrence of the external cause; Y99.8 Other external cause status
CPT/HCPCS: 73630; 99283

== ENCOUNTER 2020-02-29 22:19 | Emergency (ER) | payer MEDICAID ==
[~2020-02-29] VITALS: Ht 193 cm; Wt 127.3 kg
[~2020-02-29 22:19] MED LIST changes: +CEPH500C5 PO; +LACT1CAP60 PO
[2020-02-29 22:25] VITALS: BP 160/131
== END 2020-02-29 23:14 | disposition home or self-care (01) ==
LOC: ER 22:19
DX: S80.811A Abrasion, right lower leg, initial encounter (principal); S80.812A Abrasion, left lower leg, initial encounter; S40.812A Abrasion of left upper arm, initial encounter; S40.811A Abrasion of right upper arm, initial encounter; F19.10 Other psychoactive substance abuse, uncomplicated; F15.90 Other stimulant use, unspecified, uncomplicated; F14.90 Cocaine use, unspecified, uncomplicated; Z72.89 Other problems related to lifestyle; Z59.0 Homelessness; Z88.0 Allergy status to penicillin; Z88.8 Allergy status to other drugs, medicaments and biological substances; Z79.2 Long term (current) use of antibiotics; Z79.899 Other long term (current) drug therapy; X58.XXXA Exposure to other specified factors, initial encounter; Y93.89 Activity, other specified; Y92.89 Other specified places as the place of occurrence of the external cause; Y99.8 Other external cause status
CPT/HCPCS: 99283

== ENCOUNTER 2022-02-11 12:07 | Emergency (ER) | payer MEDICAID ==
[~2022-02-11] VITALS: Ht 190.5 cm; Wt 113.6 kg
[~2022-02-11 12:07] MED LIST changes: -CEPH500C5 PO
[2022-02-11 12:30] VITALS: BP 104/72
[2022-02-11] MEDS ORDERED: cephalexin 500mg capsule PO ONE (13:10)
[2022-02-11] MEDS ORDERED: CEPH-585 PO (13:13)
[2022-02-11] MEDS ORDERED: DOXYCYCLINE 100MG CAPSULE PO STA (13:13)
[2022-02-11] MEDS ORDERED: DOXY-411 PO (13:13)
== END 2022-02-11 13:52 | disposition home or self-care (01) ==
LOC: ER 12:08
DX: S30.810A Abrasion of lower back and pelvis, initial encounter (principal); F17.200 Nicotine dependence, unspecified, uncomplicated; Z88.0 Allergy status to penicillin; Z88.8 Allergy status to other drugs, medicaments and biological substances; X58.XXXA Exposure to other specified factors, initial encounter; Y93.89 Activity, other specified; Y92.89 Other specified places as the place of occurrence of the external cause; Y99.8 Other external cause status
CPT/HCPCS: 99283